=== PATIENT | male | born 1945 | race Caucasian/White ===

== ENCOUNTER → 2019-08-09 13:37 | Outpatient (CLI) | payer MEDICARE, SELFPAY ==
--- NOTE | 2019-08-09 13:59 | ECG_ITS ---
APPROVED REPORT Exam: Resting ECG HR:115 bpm ECG Measurements Heart Rate 115 AXES QRSd 94 QRS 15 QT 344 T 100 QTc 475 <Conclusion> Atrial fibrillation with rapid ventricular response Moderate voltage criteria for LVH, may be normal variant Nonspecific ST-T wave abnormalities, probably digitalis effect Abnormal ECG Electronically signed by : Jeremy Fisher, 08/10/2019 16:56:29
== END ==
DX: I10 Essential (primary) hypertension (principal); R00.0 Tachycardia, unspecified
CPT/HCPCS: 93005

== ENCOUNTER → 2019-08-16 14:35 | Outpatient (CLI) | payer MEDICARE, SELFPAY ==
--- NOTE | 2019-08-16 14:38 | CA_ITS ---
[facility] RADIOLOGICAL CONSULTATION Patient Name : Jon Huerta X-RAY # : [id number] Physician: MICHELE MEJIA AGE: 73Y : 1945 00:00:00 ( M ) Exam : CA ECHO DOPPLER COMPLETE ACC # : [id number] Study Date : 08/16/2019 14:59:07 Patient Class : O FINAL REPORT CLINICAL DATA: FINDINGS: TRANSCRIBED REPORT EXAM: Comprehensive 2D, Doppler, and color-flow Echocardiogram Type Mapper: RT Amando(R) Ht: 6 ft 1 in Wt: 226lbs BSA: 2.27 BP: 183/123 mmHg Indications: Palpitations, HTN, SOB, Hyperlipidemia, AFIB, hx of rheumatic fever 2D Dimensions IVSd 1.43 cm M: 0.6-1.2 PWd 1.40 cm M: 0.6 - 1.2 LVDd 3.65 cm M: 4.2 - 5.9 Aortic Root 4.30 cm M: 3.1 - 3.7 Left Atrium 4.30 cm M: 3.0 - 4.0 LVOT 2.32 cm (M/F) 1.5-2.5 M-Mode Dimensions RVDd 2.13 cm (0.9-2.6) LVDd 3.65 cm (3.5-5.7) Ao Diam 4.30 cm (2.0-3.7) LVDs 4.98 cm (3.5-5.7) AV Cusp 2.00 cm (1.5-2.6) IVSd 1.45 cm (0.6-1.1) PWd 0.88 cm (0.6-1.1) EF (Teich) 17.80% FS 8.10% EDV (Teich) 142.50 mL ESV (Teich) 117.10 mL LV Diastology E/A Ratio 3.43 Mitral Valve MV A Velocity 26.00 (40-130 cm/s) Electronically signed by : IMPRESSION: Dictated by at Transcribed by at
== END ==
PROVIDERS: Visit Provider Physician Assistant
DX: R06.09 Other forms of dyspnea (principal)
CPT/HCPCS: 93306

== ENCOUNTER → 2019-08-19 13:42 | Outpatient (CLI) | payer MEDICARE, SELFPAY ==
--- NOTE | 2019-08-19 13:59 | XR_ITS ---
PROCEDURE: XR CHEST 2V CLINICAL HISTORY: SOA, Rach. fib COMPARISON: No exams were available for comparison FINDINGS: Mild cardiomegaly without failure. There tortuosity of the descending thoracic aorta The lungs are clear without infiltrates, suspicious nodules, or pleural effusions. No acute bony abnormalities. IMPRESSION: No acute findings. Dictated by: Terence Oconnor MD 08/19/2019 14:30 Electronically signed by Terence Oconnor MD in [place] 08/19/2019 14:30
== END ==
PROVIDERS: Visit Provider Internal Medicine
DX: I10 Essential (primary) hypertension (principal); I48.91 Unspecified atrial fibrillation; R06.02 Shortness of breath; Z86.79 Personal history of other diseases of the circulatory system
CPT/HCPCS: 71046

== ENCOUNTER → 2019-08-30 11:28 | Outpatient (CLI) | payer MEDICARE, SELFPAY ==
--- NOTE | 2019-08-30 11:42 | US_ITS ---
PROCEDURE: US KIDNEY CLINICAL INDICATION: I10 Essential (primary) hypertension The hypertension COMPARISON: No exams were available for comparison FINDINGS: The kidneys are normal size shape and position. No cortical thinning or scarring demonstrated. No hydronephrosis or mass IMPRESSION: Unremarkable bilateral renal ultrasound Dictated by: Terence Oconnor MD 08/30/2019 14:21 Electronically signed by Terence Oconnor MD in [place] 08/30/2019 14:21
== END ==
PROVIDERS: Visit Provider Internal Medicine
DX: I10 Essential (primary) hypertension (principal)
CPT/HCPCS: 76770

== ENCOUNTER → 2019-09-07 11:54 | Outpatient (CLI) | payer MEDICARE, SELFPAY ==
[2019-09-07 12:23] LABS: Basophils # 0.1 K/mm3 (0-0.2); Eosinophils # 0.3 K/mm3 (0.0-0.4); Eosinophils % 3.8 % (0.1-12.0); Hemoglobin 17.4 g/dL (14.1-18.0); Lymphocytes # 1.1 K/mm3 (0.7-4.5); Lymphocytes % 16.5 % (10-50); Mean Corpuscular HGB Conc 32.8 g/dL (31.8-35.4); Mean Corpuscular Hemoglobin 30.4 pg (27.0-31.2); Mean Corpuscular Volume 92.6 fl (80-94); Mean Platelet Volume 7.2 fl (7.4-10.4); Monocytes # 0.4 K/mm3 (0.1-1.0); Monocytes % 6.1 % (1.7-9.3); Neutrophils # 4.8 K/mm3 (1.8-7.8); Neutrophils % 72.6 % (37.0-80.0); Platelet Count 232 K/mm3 (142-424); Red Blood Count 5.72 M/mm3 (4.60-6.20); Red Cell Distribution Width 13.7 % (11.5-17.5); White Blood Count 6.6 K/mm3 (4.8-10.8)
[2019-09-07 15:51] LABS: Anion Gap 10.5 mEq/L (5-15); Blood Urea Nitrogen 25 mg/dL (7-18); Calcium 8.9 mg/dL (8.5-10.1); Carbon Dioxide 28 mmol/L (21.0-32.0); Chloride 104 mmol/L (98-107); Estimated Glomerular Filt Rate 66 ml/min (>60); GFR (African American) 80 ML/MIN (>60); Glucose 116 mg/dL (74-106); Potassium 4.5 mmoL/L (3.5-5.1); Sodium 138 mmol/L (136-145)
== END ==
PROVIDERS: Visit Provider Nurse Practitioner Family
DX: I42.9 Cardiomyopathy, unspecified (principal); E78.2 Mixed hyperlipidemia; I25.10 Atherosclerotic heart disease of native coronary artery without angina pectoris; I48.91 Unspecified atrial fibrillation; I50.22 Chronic systolic (congestive) heart failure; R94.31 Abnormal electrocardiogram [ECG] [EKG]
CPT/HCPCS: 36415; 80048; 85025

== ENCOUNTER → 2019-09-21 10:33 | Outpatient (CLI) | payer MEDICARE, SELFPAY | PROVIDERS: Visit Provider Nurse Practitioner Family | DX: G47.33 Obstructive sleep apnea (adult) (pediatric) (principal) | CPT/HCPCS: G0399 ==

== ENCOUNTER → 2019-09-30 10:25 | Outpatient (CLI) | payer MEDICARE, SELFPAY | PROVIDERS: Visit Provider Nurse Practitioner Family | DX: G47.33 Obstructive sleep apnea (adult) (pediatric) (principal) | CPT/HCPCS: G0399 ==

== ENCOUNTER → 2020-05-24 10:46 | Outpatient (CLI) | payer MEDICARE, SELFPAY ==
[2020-05-24 11:16] LABS: Basophils # 0.1 K/mm3 (0-0.2); Eosinophils # 0.2 K/mm3 (0.0-0.4); Lymphocytes # 1.2 K/mm3 (0.7-4.5); Mean Platelet Volume 6.8 fl (7.4-10.4); Monocytes # 0.4 K/mm3 (0.1-1.0)
[2020-05-24 11:39] LABS: Basophils % 0.9 % (0.1-2.0); Eosinophils % 3.1 % (0.1-12.0); Hematocrit 57.3 % (42.0-52.0); Lymphocytes % 23.5 % (10-50); Mean Corpuscular HGB Conc 34.8 g/dL (31.8-35.4); Mean Corpuscular Hemoglobin 31.5 pg (27.0-31.2); Mean Corpuscular Volume 90.7 fl (80-94); Monocytes % 7.3 % (1.7-9.3); Neutrophils # 3.4 K/mm3 (1.8-7.8); Neutrophils % 65.2 % (37.0-80.0); Platelet Count 189 K/mm3 (142-424); Red Blood Count 6.31 M/mm3 (4.60-6.20); White Blood Count 5.3 K/mm3 (4.8-10.8)
[2020-05-24 11:40] LABS: Chloride 104 mmol/L (98-107); Potassium 4.5 mmoL/L (3.5-5.1); Sodium 138 mmol/L (136-145)
[2020-05-24 11:43] LABS: Anion Gap 11.5 mEq/L (5-15); Blood Urea Nitrogen 20 mg/dl (9-20); Calcium 9.2 mg/dl (8.4-10.2); Carbon Dioxide 27 mmol/L (22.0-30.0); Estimated Glomerular Filt Rate 83 ml/min (>60); GFR (African American) 100 ML/MIN (>60); Glucose 109 mg/dl (74-100)
[2020-05-24 11:44] LABS: Hemoglobin 19.9 g/dL (14.1-18.0)
== END ==
PROVIDERS: Visit Provider Urology
DX: E78.5 Hyperlipidemia, unspecified (principal); I11.9 Hypertensive heart disease without heart failure; I25.10 Atherosclerotic heart disease of native coronary artery without angina pectoris; I48.91 Unspecified atrial fibrillation; I50.22 Chronic systolic (congestive) heart failure; R06.00 Dyspnea, unspecified
CPT/HCPCS: 36415; 80048; 85025

== ENCOUNTER 2020-05-26 12:40 | Outpatient (CLI) | payer MEDICARE, SELFPAY ==
[2020-05-26 12:55] VITALS: BP 137/95; PULSE 79; RESP 18; O2SAT 98
[2020-05-26 13:25] VITALS: BP 137/94; PULSE 86; RESP 18
== END 2020-05-26 13:25 | disposition home or self-care (01) ==
LOC: INF 12:42
PROVIDERS: Visit Provider Urology
DX: D75.1 Secondary polycythemia (principal)
CPT/HCPCS: 99195

== ENCOUNTER 2020-06-09 12:36 | Outpatient (CLI) | payer MEDICARE, SELFPAY ==
[2020-06-09 12:38] VITALS: BMI 28.8
[2020-06-09 12:54] LABS: Hematocrit 51.9 % (42.0-52.0)
[2020-06-09 13:05] VITALS: BP 130/88; PULSE 89; RESP 18; TEMP 36.6; O2SAT 97
--- NOTE | 2020-06-09 14:31 | PC.NURSE ---
1240 Patient here for H&H lab/possible therapeutic phlebotomy. H&H drawn per geochemical laboratory technician. 1250 Patient's H&H 18.0/51.9 today. No therapeutic phlebotomy needed. 1255 Spoke with Kiarra in Dr. Gautam/Goldie Butterfield APRN office. Informed of results and no need for therapeutic phlebotomy today. Patient/outpatient infusion will be notified per MD's office if any further H&H/possible therapeutic phlebotomy needed. Patient informed of same, and verbalizes understanding. Patient has scheduled follow-up appointment with MD's office 08/23/20 at 1130 am/patient will be notified per MD's office if sooner followup needed.
== END 2020-06-09 13:05 | disposition home or self-care (01) ==
LOC: INF 12:36
PROVIDERS: Visit Provider Nurse Practitioner Family
DX: Z51.81 Encounter for therapeutic drug level monitoring (principal)
CPT/HCPCS: 85014; 85018

== ENCOUNTER → 2022-01-07 14:08 | Outpatient (CLI) | payer MEDICARE, SELFPAY ==
[2022-01-07 14:58] LABS: Basophils # 0.1 K/mm3 (0-0.2); Basophils % 0.9 % (0.1-2.0); Eosinophils # 0.1 K/mm3 (0.0-0.4); Eosinophils % 2.4 % (0.1-12.0); Lymphocytes # 0.7 K/mm3 (0.7-4.5); Lymphocytes % 12.9 % (10-50); Mean Corpuscular HGB Conc 31.8 g/dL (31.8-35.4); Mean Corpuscular Hemoglobin 29.9 pg (27.0-31.2); Mean Corpuscular Volume 94.1 fl (80-94); Mean Platelet Volume 7.3 fl (7.4-10.4); Monocytes # 0.4 K/mm3 (0.1-1.0); Monocytes % 7.6 % (1.7-9.3); Neutrophils # 4.4 K/mm3 (1.8-7.8); Neutrophils % 76.1 % (37.0-80.0); Platelet Count 222 K/mm3 (142-424); Red Blood Count 6.48 M/mm3 (4.60-6.20); White Blood Count 5.7 K/mm3 (4.8-10.8)
[2022-01-07 15:51] LABS: Alanine Aminotransferase 18 U/L (12-78); Albumin Level 4.3 g/dl (3.5-5.0); Alkaline Phosphatase 64 U/L (38-126); Anion Gap 10.8 mEq/L (5-15); Aspartate Amino Transferase 33 U/L (17-59); Bilirubin,Direct 0.2 mg/dl (0.0-0.4); Bilirubin,Indirect 1.7 mg/dL (0.0-0.9); Bilirubin,Total 1.9 mg/dl (0.2-1.3); Bilirubin,Unconjugated 1.8 mg/dL (0.0-1.1); Blood Urea Nitrogen 21 mg/dl (9-20); Calcium 9.4 mg/dl (8.4-10.2); Carbon Dioxide 29 mmol/L (22.0-30.0); Chloride 101 mmol/L (98-107); Chol/HDL Ratio 3.8 (1-3.5); Cholesterol 187 mg/dl (140-200); Estimated Glomerular Filt Rate 73 ml/min (>60); GFR (African American) 88 ML/MIN (>60); Glucose 108 mg/dl (74-100); HDL Cholesterol 49 mg/dl (40-60); Potassium 4.8 mmoL/L (3.5-5.1); Sodium 136 mmol/L (136-145); Total Protein,Serum 6.9 g/dl (6.3-8.2); Triglycerides 107 mg/dl (30-150); VLDL Cholesterol 21 mg/dL (0-40)
[2022-01-07 16:03] LABS: Direct LDL Cholesterol 106.68 mg/dL (100-129)
[2022-01-07 18:26] LABS: Hemoglobin 19.4 g/dL (14.1-18.0)
== END ==
PROVIDERS: Visit Provider Nurse Practitioner Family
DX: D75.1 Secondary polycythemia (principal); E78.5 Hyperlipidemia, unspecified; I11.0 Hypertensive heart disease with heart failure; I25.10 Atherosclerotic heart disease of native coronary artery without angina pectoris; I42.9 Cardiomyopathy, unspecified; I48.91 Unspecified atrial fibrillation; I50.22 Chronic systolic (congestive) heart failure; R06.00 Dyspnea, unspecified; Z86.79 Personal history of other diseases of the circulatory system
CPT/HCPCS: 36415; 80048; 80061; 80076; 85025

== ENCOUNTER 2022-01-09 12:31 | Outpatient (CLI) | payer MEDICARE, SELFPAY ==
[2022-01-09 12:50] VITALS: BP 136/85; PULSE 75; RESP 18
[2022-01-09 13:27] VITALS: BP 138/88; PULSE 75; RESP 18
== END 2022-01-09 13:27 | disposition home or self-care (01) ==
LOC: INF 12:32
PROVIDERS: Visit Provider Nurse Practitioner Family
DX: R79.1 Abnormal coagulation profile (principal)
CPT/HCPCS: 99195

== ENCOUNTER → 2022-07-08 13:37 | Outpatient (CLI) | payer MEDICARE, SELFPAY ==
[2022-07-08 14:47] LABS: Basophils # 0.1 K/mm3 (0-0.2); Basophils % 1.2 % (0.1-2.0); Eosinophils # 0.1 K/mm3 (0.0-0.4); Eosinophils % 2.2 % (0.1-12.0); Hematocrit 58.3 % (42.0-52.0); Lymphocytes # 1.2 K/mm3 (0.7-4.5); Lymphocytes % 21.2 % (10-50); Mean Corpuscular HGB Conc 33.2 g/dL (31.8-35.4); Mean Corpuscular Hemoglobin 31.2 pg (27.0-31.2); Mean Corpuscular Volume 93.9 fl (80-94); Mean Platelet Volume 7.7 fl (7.4-10.4); Monocytes # 0.5 K/mm3 (0.1-1.0); Monocytes % 7.9 % (1.7-9.3); Neutrophils # 3.9 K/mm3 (1.8-7.8); Neutrophils % 67.4 % (37.0-80.0); Platelet Count 210 K/mm3 (142-424); Red Blood Count 6.21 M/mm3 (4.60-6.20); Red Cell Distribution Width 14.2 % (11.5-17.5); White Blood Count 5.7 K/mm3 (4.8-10.8)
[2022-07-08 16:05] LABS: Alanine Aminotransferase 22 U/L (12-78); Albumin Level 4.4 g/dl (3.5-5.0); Alkaline Phosphatase 82 U/L (38-126); Anion Gap 14.2 mEq/L (5-15); Aspartate Amino Transferase 35 U/L (17-59); Bilirubin,Direct 0.2 mg/dl (0.0-0.4); Bilirubin,Indirect 1.5 mg/dL (0.0-0.9); Bilirubin,Total 1.7 mg/dl (0.2-1.3); Bilirubin,Unconjugated 1.5 mg/dL (0.0-1.1); Blood Urea Nitrogen 28 mg/dl (9-20); Calcium 9.3 mg/dl (8.4-10.2); Carbon Dioxide 27 mmol/L (22.0-30.0); Chloride 102 mmol/L (98-107); Chol/HDL Ratio 4.5 (1-3.5); Cholesterol 210 mg/dl (140-200); Estimated Glomerular Filt Rate 65 ml/min (>60); GFR (African American) 79 ML/MIN (>60); Glucose 102 mg/dl (74-100); HDL Cholesterol 47 mg/dl (40-60); Hemoglobin 19.4 g/dL (14.1-18.0); Magnesium 2.1 mg/dl (1.6-2.3); Potassium 4.2 mmoL/L (3.5-5.1); Sodium 139 mmol/L (136-145); Total Protein,Serum 7.4 g/dl (6.3-8.2); Triglycerides 100 mg/dl (30-150); VLDL Cholesterol 20 mg/dL (0-40)
[2022-07-08 16:17] LABS: Direct LDL Cholesterol 140.89 mg/dL (100-129)
[2022-07-08 16:22] LABS: Free T4 (Free Thyroxine) 0.95 ng/dl (0.78-2.19)
[2022-07-08 16:36] LABS: Thyroid Stimulating Hormone 1.49 uIU/mL (0.465-4.68)
== END ==
PROVIDERS: Visit Provider Nurse Practitioner Family
DX: E78.2 Mixed hyperlipidemia (principal); I25.10 Atherosclerotic heart disease of native coronary artery without angina pectoris; I42.9 Cardiomyopathy, unspecified; I48.0 Paroxysmal atrial fibrillation; I50.22 Chronic systolic (congestive) heart failure; R94.31 Abnormal electrocardiogram [ECG] [EKG]; I11.0 Hypertensive heart disease with heart failure
CPT/HCPCS: 36415; 80048; 80061; 80076; 83735; 84439; 84443; 85025

== ENCOUNTER 2022-07-10 10:34 | Outpatient (CLI) | payer MEDICARE, SELFPAY ==
[2022-07-10 10:53] VITALS: BP 158/77; PULSE 60; RESP 18; O2SAT 96
[2022-07-10 12:08] VITALS: BP 126/103; PULSE 72; RESP 18; O2SAT 99
--- NOTE | 2022-07-10 12:35 | CA_ITS ---
APPROVED REPORT EXAM: Comprehensive 2D, Doppler, and color-flow Echocardiogram Field Operations Farm Manager: Luz English RDCS Ht: 6 ft 1 in Wt: 209lbs BSA: 2.19 BP: 000/00 mmHg Indications: CAD, CHF, Afib, Abn EKG, HTN, HLD,CM 2D Dimensions LVOT 2.04 cm (M/F) 1.5-2.5 M-Mode Dimensions RVDd 2.41 cm (0.9-2.6) LA Diam 4.89 cm (1.9-4.0) LVDd 7.04 cm (3.5-5.7) Ao Diam 3.86 cm (2.0-3.7) LVDs 5.26 cm (3.5-5.7) IVSd 1.20 cm (0.6-1.1) PWd 0.98 cm (0.6-1.1) EF (Teich) 48.60% FS 25.30% EDV (Teich) 258.70 mL ESV (Teich) 133.00 mL Aortic Valve LVOT Max 76.00 (70-110 cm/s) LVOT VTI 14.66 cm AoV Peak Remberto. 103.00 (50-130 cm/s) AI PHT 546.00 ms AO Peak GR. 4.20 mmHg AO Mean GR. 2.10 (<5 mmHg) AO VTI 16.82 (18-25 cm) FERNANDO (VTI) 2.85 (2.5-4.5 cm2) Tricuspid Valve TR P. Velocity 226.00 cm/s RAP Estimate 10.00 mmHg RVSP 30.40 mmHg Left Ventricle Left atrium is moderately enlarged, left ventricle is normal size, mild concentric left ventricular hypertrophy, estimated ejection fraction 50% with no regional wall motion abnormality, diastolic parameters are inconclusive. Right Ventricle Right atrium and right ventricle are mildly enlarged with normal contractility. Aortic Valve Aortic valve is minimally thickened and calcified there is no aortic stenosis, there is moderate aortic insufficiency Mitral Valve Mitral valve leaflets are minimally thickened, there is mild to moderate mitral regurgitation. Tricuspid Valve Tricuspid valve grossly normal, there is mild tricuspid regurgitation, tricuspid regurgitation jet velocity is inadequate for calculation of the right ventricular systolic pressure. Pulmonic Valve Pulmonic valve is poorly visualized. Great Vessels Aortic root is normal size. Inferior vena cava is poorly visualized. Pericardium No significant pericardial effusion noted. Conclusion 1. Biatrial enlargement, normal left ventricular size, mild concentric left ventricular hypertrophy, estimated ejection fraction is 50% with no obvious regional wall motion abnormality, diastolic parameters are inconclusive. 2. Mildly enlarged right ventricle with normal contractility. 3. Mild to moderate mitral and moderate aortic insufficiency. 4. No significant pericardial effusion noted. 5. Inferior vena cava is poorly visualized. Electronically signed by : Aguila Ovalle MD 07/11/2022 05:58:09
== END 2022-07-10 12:09 | disposition home or self-care (01) ==
PROVIDERS: Visit Provider Internal Medicine
DX: I42.9 Cardiomyopathy, unspecified (principal); I50.22 Chronic systolic (congestive) heart failure
CPT/HCPCS: 93306; 99195

== ENCOUNTER 2022-08-07 11:20 | Outpatient (CLI) | payer MEDICARE, SELFPAY ==
[2022-08-07 11:27] VITALS: BMI 27.6
[2022-08-07 11:53] LABS: Basophils # 0.1 K/mm3 (0-0.2); Basophils % 1.5 % (0.1-2.0); Eosinophils # 0.2 K/mm3 (0.0-0.4); Eosinophils % 3.2 % (0.1-12.0); Hematocrit 52.9 % (42.0-52.0); Hemoglobin 17.5 g/dL (14.1-18.0); Lymphocytes # 1.1 K/mm3 (0.7-4.5); Mean Corpuscular HGB Conc 33.1 g/dL (31.8-35.4); Mean Corpuscular Hemoglobin 31.5 pg (27.0-31.2); Mean Platelet Volume 7.2 fl (7.4-10.4); Monocytes # 0.4 K/mm3 (0.1-1.0); Monocytes % 8.3 % (1.7-9.3); Neutrophils # 3.3 K/mm3 (1.8-7.8); Neutrophils % 65.9 % (37.0-80.0); Platelet Count 219 K/mm3 (142-424); Red Blood Count 5.58 M/mm3 (4.60-6.20); Red Cell Distribution Width 13.8 % (11.5-17.5)
--- NOTE | 2022-08-07 13:00 | PC.NURSE ---
1135-BLOOD DRAWN FROM LEFT FOREARM USING BUTTERFLY NEEDLE TO CHECK CBC.
--- NOTE | 2022-08-07 13:05 | PC.NURSE ---
1215 - HAMILTON KAPLAN FROM LAB PRESENT TO START THERAPEUTIC PHLEBOTOMY. RN STARTED #20 IN RIGHT FOREARM. VITALS FOLLOWS: PULSE 76, RESP 16, BP 133/100, O2 SAT 96% ON ROOM AIR.
--- NOTE | 2022-08-07 14:22 | PC.NURSE ---
1345-THERAPEUTIC PHLEBOTOMY COMPLETE; IV REMOVED; VITALS FOLLOWS: PULSE 79, RESP 16, BP 140/89.
== END 2022-08-07 14:00 | disposition home or self-care (01) ==
LOC: INF 11:22
PROVIDERS: Visit Provider Internal Medicine
DX: D45 Polycythemia vera (principal)
CPT/HCPCS: 36415; 85025; 99195

== ENCOUNTER 2022-09-04 11:11 | Outpatient (CLI) | payer MEDICARE, SELFPAY ==
[2022-09-04 11:24] VITALS: BMI 27.6
[2022-09-04 11:39] LABS: Basophils # 0.1 K/mm3 (0-0.2); Basophils % 1.5 % (0.1-2.0); Eosinophils # 0.2 K/mm3 (0.0-0.4); Eosinophils % 3.2 % (0.1-12.0); Hematocrit 56.2 % (42.0-52.0); Lymphocytes # 1.2 K/mm3 (0.7-4.5); Lymphocytes % 22.1 % (10-50); Mean Corpuscular Hemoglobin 30.2 pg (27.0-31.2); Mean Corpuscular Volume 94.1 fl (80-94); Mean Platelet Volume 7.3 fl (7.4-10.4); Monocytes # 0.5 K/mm3 (0.1-1.0); Monocytes % 8.9 % (1.7-9.3); Neutrophils # 3.6 K/mm3 (1.8-7.8); Neutrophils % 64.3 % (37.0-80.0); Platelet Count 222 K/mm3 (142-424); Red Blood Count 5.97 M/mm3 (4.60-6.20); Red Cell Distribution Width 13.8 % (11.5-17.5); White Blood Count 5.6 K/mm3 (4.8-10.8)
[2022-09-04 11:50] VITALS: BP 145/99; PULSE 96; RESP 18
[2022-09-04 13:45] VITALS: BP 119/80; PULSE 74; RESP 18
== END 2022-09-04 13:45 | disposition home or self-care (01) ==
PROVIDERS: Visit Provider Physician Assistant
DX: D45 Polycythemia vera (principal)
CPT/HCPCS: 36415; 85025; 99195

== ENCOUNTER 2022-10-02 10:49 | Outpatient (CLI) | payer MEDICARE, SELFPAY ==
[2022-10-02 10:58] VITALS: BMI 27.6
[2022-10-02 11:12] LABS: Basophils # 0.1 K/mm3 (0-0.2); Basophils % 1.3 % (0.1-2.0); Eosinophils # 0.2 K/mm3 (0.0-0.4); Eosinophils % 3.9 % (0.1-12.0); Hematocrit 53.1 % (42.0-52.0); Hemoglobin 17.5 g/dL (14.1-18.0); Lymphocytes # 1.1 K/mm3 (0.7-4.5); Lymphocytes % 22.2 % (10-50); Mean Corpuscular HGB Conc 32.9 g/dL (31.8-35.4); Mean Corpuscular Hemoglobin 30.5 pg (27.0-31.2); Mean Corpuscular Volume 92.6 fl (80-94); Mean Platelet Volume 7.4 fl (7.4-10.4); Monocytes # 0.4 K/mm3 (0.1-1.0); Neutrophils # 3.3 K/mm3 (1.8-7.8); Neutrophils % 65.6 % (37.0-80.0); Platelet Count 228 K/mm3 (142-424); Red Blood Count 5.73 M/mm3 (4.60-6.20); Red Cell Distribution Width 13.3 % (11.5-17.5); White Blood Count 5.1 K/mm3 (4.8-10.8)
[2022-10-02 11:25] VITALS: BP 117/78; PULSE 72; RESP 18; O2SAT 99
== END 2022-10-02 12:10 | disposition home or self-care (01) ==
LOC: INF 10:53
PROVIDERS: Visit Provider Internal Medicine
DX: D45 Polycythemia vera (principal)
CPT/HCPCS: 36415; 85025; 99195

== ENCOUNTER 2022-10-30 10:58 | Outpatient (CLI) | payer MEDICARE, SELFPAY ==
[2022-10-30 11:01] VITALS: BMI 26.5
--- NOTE | 2022-10-30 11:05 | PC.NURSE ---
1105-collected labs via peripheral stick;will wait for labs
[2022-10-30 11:24] LABS: Basophils # 0.2 K/mm3 (0-0.2); Basophils % 2.4 % (0.1-2.0); Eosinophils # 0.2 K/mm3 (0.0-0.4); Eosinophils % 2.8 % (0.1-12.0); Hematocrit 53.9 % (42.0-52.0); Hemoglobin 16.4 g/dL (14.1-18.0); Lymphocytes # 1.4 K/mm3 (0.7-4.5); Lymphocytes % 20.2 % (10-50); Mean Corpuscular HGB Conc 30.5 g/dL (31.8-35.4); Mean Corpuscular Hemoglobin 28.7 pg (27.0-31.2); Mean Corpuscular Volume 94.2 fl (80-94); Mean Platelet Volume 7.7 fl (7.4-10.4); Monocytes # 0.8 K/mm3 (0.1-1.0); Monocytes % 11.2 % (1.7-9.3); Neutrophils # 4.4 K/mm3 (1.8-7.8); Neutrophils % 63.5 % (37.0-80.0); Platelet Count 278 K/mm3 (142-424); Red Blood Count 5.72 M/mm3 (4.60-6.20); Red Cell Distribution Width 13.6 % (11.5-17.5)
--- NOTE | 2022-10-30 11:28 | PC.NURSE ---
1128-pt d/c home; no phlebotomy today hgb 16.4; pt to return in 1month
== END 2022-10-30 11:28 | disposition home or self-care (01) ==
LOC: INF 10:59
PROVIDERS: Visit Provider Internal Medicine
DX: D45 Polycythemia vera (principal)
CPT/HCPCS: 36415; 85025

== ENCOUNTER 2022-11-27 10:50 | Outpatient (CLI) | payer MEDICARE, SELFPAY ==
[2022-11-27 10:55] VITALS: BMI 27.6
--- NOTE | 2022-11-27 11:01 | PC.NURSE ---
1101-collected labs via peripheral stick;will wait for labs
[2022-11-27 11:26] LABS: Basophils # 0.1 K/mm3 (0-0.2); Basophils % 1.4 % (0.1-2.0); Eosinophils # 0.1 K/mm3 (0.0-0.4); Eosinophils % 2.1 % (0.1-12.0); Hematocrit 53.4 % (42.0-52.0); Hemoglobin 17.1 g/dL (14.1-18.0); Lymphocytes % 20.7 % (10-50); Mean Corpuscular Hemoglobin 27.9 pg (27.0-31.2); Mean Corpuscular Volume 87.3 fl (80-94); Mean Platelet Volume 7.1 fl (7.4-10.4); Monocytes # 0.5 K/mm3 (0.1-1.0); Monocytes % 9.1 % (1.7-9.3); Neutrophils # 3.3 K/mm3 (1.8-7.8); Neutrophils % 66.8 % (37.0-80.0); Platelet Count 244 K/mm3 (142-424); Red Blood Count 6.12 M/mm3 (4.60-6.20); Red Cell Distribution Width 14.2 % (11.5-17.5); White Blood Count 4.9 K/mm3 (4.8-10.8)
[2022-11-27 11:45] VITALS: BP 126/67; PULSE 74; RESP 19; O2SAT 95
[2022-11-27 12:10] VITALS: BP 142/93; PULSE 79; RESP 18
== END 2022-11-27 12:10 | disposition home or self-care (01) ==
LOC: INF 10:51
PROVIDERS: Visit Provider Internal Medicine
DX: D45 Polycythemia vera (principal)
CPT/HCPCS: 36415; 85025; 99195

== ENCOUNTER 2022-12-25 11:06 | Outpatient (CLI) | payer MEDICARE, SELFPAY ==
[2022-12-25 11:07] VITALS: BMI 27.6
[2022-12-25 11:29] LABS: Basophils # 0.1 K/mm3 (0-0.2); Basophils % 1.2 % (0.1-2.0); Eosinophils # 0.1 K/mm3 (0.0-0.4); Eosinophils % 1.9 % (0.1-12.0); Hematocrit 52.2 % (42.0-52.0); Hemoglobin 16.8 g/dL (14.1-18.0); Lymphocytes % 20.3 % (10-50); Mean Corpuscular HGB Conc 32.1 g/dL (31.8-35.4); Mean Corpuscular Hemoglobin 27.6 pg (27.0-31.2); Mean Platelet Volume 7.6 fl (7.4-10.4); Monocytes # 0.4 K/mm3 (0.1-1.0); Monocytes % 6.9 % (1.7-9.3); Neutrophils # 3.5 K/mm3 (1.8-7.8); Neutrophils % 69.7 % (37.0-80.0); Platelet Count 264 K/mm3 (142-424); Red Blood Count 6.07 M/mm3 (4.60-6.20); Red Cell Distribution Width 14.3 % (11.5-17.5)
--- NOTE | 2022-12-25 11:55 | PC.NURSE ---
pt hgb was 16.8 and did not meet criteria for phlebotomy per MD order.
== END 2022-12-25 11:57 | disposition home or self-care (01) ==
LOC: INF 11:07
PROVIDERS: Visit Provider Internal Medicine
DX: D45 Polycythemia vera (principal)
CPT/HCPCS: 36415; 85025

== ENCOUNTER 2023-01-22 11:08 | Outpatient (CLI) | payer MEDICARE, SELFPAY ==
[2023-01-22 11:22] VITALS: BMI 27.6
[2023-01-22 11:40] LABS: Basophils # 0.1 K/mm3 (0-0.2); Basophils % 1.3 % (0.1-2.0); Eosinophils # 0.2 K/mm3 (0.0-0.4); Eosinophils % 3.5 % (0.1-12.0); Hematocrit 52.6 % (42.0-52.0); Lymphocytes # 1.2 K/mm3 (0.7-4.5); Lymphocytes % 19.5 % (10-50); Mean Corpuscular HGB Conc 32.3 g/dL (31.8-35.4); Mean Corpuscular Hemoglobin 27.7 pg (27.0-31.2); Mean Corpuscular Volume 85.9 fl (80-94); Mean Platelet Volume 7.5 fl (7.4-10.4); Monocytes # 0.5 K/mm3 (0.1-1.0); Monocytes % 7.9 % (1.7-9.3); Neutrophils # 4.2 K/mm3 (1.8-7.8); Neutrophils % 67.7 % (37.0-80.0); Platelet Count 247 K/mm3 (142-424); Red Blood Count 6.12 M/mm3 (4.60-6.20); Red Cell Distribution Width 14.7 % (11.5-17.5); White Blood Count 6.2 K/mm3 (4.8-10.8)
--- NOTE | 2023-01-22 11:45 | PC.NURSE ---
Pt hgb today was 17.0. Pt does not meet criteria for phlebotomy per MD order. f/u scheduled for 1 month.
== END 2023-01-22 11:47 | disposition home or self-care (01) ==
LOC: INF 11:09
PROVIDERS: PCP Internal Medicine; Visit Provider Internal Medicine
DX: D45 Polycythemia vera (principal)
CPT/HCPCS: 36415; 85025

== ENCOUNTER 2023-02-19 12:18 | Outpatient (CLI) | payer MEDICARE, SELFPAY ==
[2023-02-19 12:50] VITALS: BMI 27.6
[2023-02-19 12:59] LABS: Basophils # 0.1 K/mm3 (0-0.2); Eosinophils # 0.2 K/mm3 (0.0-0.4); Eosinophils % 2.7 % (0.1-12.0); Hematocrit 53.7 % (42.0-52.0); Hemoglobin 17.2 g/dL (14.1-18.0); Lymphocytes # 1.1 K/mm3 (0.7-4.5); Lymphocytes % 19.5 % (10-50); Mean Corpuscular Hemoglobin 27.8 pg (27.0-31.2); Mean Corpuscular Volume 86.9 fl (80-94); Mean Platelet Volume 7.6 fl (7.4-10.4); Monocytes # 0.4 K/mm3 (0.1-1.0); Monocytes % 7.3 % (1.7-9.3); Neutrophils # 3.9 K/mm3 (1.8-7.8); Neutrophils % 69.5 % (37.0-80.0); Platelet Count 242 K/mm3 (142-424); Red Blood Count 6.19 M/mm3 (4.60-6.20); Red Cell Distribution Width 15.7 % (11.5-17.5); White Blood Count 5.6 K/mm3 (4.8-10.8)
--- NOTE | 2023-02-19 14:03 | PC.NURSE ---
Phlebotomy performed by Laura Breen from lab. 500 ml whole blood removed per MD order via 18g in right forearm. BP post phlebotomy was 121/90, HR 83. pt tolerated well and voiced no complaints. IV removed.
== END 2023-02-19 13:36 | disposition home or self-care (01) ==
LOC: INF 12:19
PROVIDERS: PCP Internal Medicine; Visit Provider Internal Medicine
DX: I42.8 Other cardiomyopathies (principal); D75.1 Secondary polycythemia
CPT/HCPCS: 36415; 85025; 99195

== ENCOUNTER 2023-03-19 12:47 | Outpatient (CLI) | payer MEDICARE, SELFPAY ==
[2023-03-19 12:52] VITALS: BMI 27.6
[2023-03-19 13:05] LABS: Basophils % 0.6 % (0.1-2.0); Eosinophils # 0.2 K/mm3 (0.0-0.4); Eosinophils % 3.2 % (0.1-12.0); Hematocrit 50.6 % (42.0-52.0); Hemoglobin 15.9 g/dL (14.1-18.0); Lymphocytes # 0.9 K/mm3 (0.7-4.5); Lymphocytes % 15.8 % (10-50); Mean Corpuscular HGB Conc 31.5 g/dL (31.8-35.4); Mean Corpuscular Volume 85.9 fl (80-94); Mean Platelet Volume 7.3 fl (7.4-10.4); Monocytes # 0.5 K/mm3 (0.1-1.0); Monocytes % 8.8 % (1.7-9.3); Neutrophils # 3.9 K/mm3 (1.8-7.8); Neutrophils % 71.6 % (37.0-80.0); Platelet Count 222 K/mm3 (142-424); Red Blood Count 5.89 M/mm3 (4.60-6.20); Red Cell Distribution Width 15.8 % (11.5-17.5); White Blood Count 5.5 K/mm3 (4.8-10.8)
--- NOTE | 2023-03-19 13:46 | PC.NURSE ---
1255-BLOOD DRAWN FROM LEFT AC USING BUTTERFLY NEEDLE TO CHECK CBC AT THIS TIME.
--- NOTE | 2023-03-19 13:47 | PC.NURSE ---
1310-NO THERAPEUTIC PHLEBOTOMY NEEDED DUE TO HGB 15.9.
== END 2023-03-19 13:15 | disposition home or self-care (01) ==
LOC: INF 12:48
PROVIDERS: Visit Provider Internal Medicine
DX: D45 Polycythemia vera (principal)
CPT/HCPCS: 36415; 85025

== ENCOUNTER 2023-04-16 11:55 | Outpatient (CLI) | payer MEDICARE, SELFPAY ==
[2023-04-16 12:01] VITALS: BMI 27.6
[2023-04-16 12:19] LABS: Basophils % 0.7 % (0.1-2.0); Eosinophils # 0.2 K/mm3 (0.0-0.4); Eosinophils % 3.9 % (0.1-12.0); Hematocrit 51.9 % (42.0-52.0); Hemoglobin 16.4 g/dL (14.1-18.0); Lymphocytes % 16.7 % (10-50); Mean Corpuscular HGB Conc 31.6 g/dL (31.8-35.4); Mean Corpuscular Hemoglobin 27.1 pg (27.0-31.2); Mean Corpuscular Volume 85.8 fl (80-94); Mean Platelet Volume 7.5 fl (7.4-10.4); Monocytes # 0.5 K/mm3 (0.1-1.0); Monocytes % 8.6 % (1.7-9.3); Neutrophils % 70.1 % (37.0-80.0); Platelet Count 215 K/mm3 (142-424); Red Blood Count 6.05 M/mm3 (4.60-6.20); Red Cell Distribution Width 15.9 % (11.5-17.5); White Blood Count 5.7 K/mm3 (4.8-10.8)
--- NOTE | 2023-04-16 12:28 | PC.NURSE ---
04/16/23 1211 pt presents today for lab check, possible phlebotomy. venipuncture performed to pts rt fa using butterfly needle. Blood drawn for specimen and needle withdrawn-site secured with 2x2 gauze and coban.
== END 2023-04-16 13:03 | disposition home or self-care (01) ==
LOC: INF 11:56
PROVIDERS: PCP Internal Medicine; Visit Provider Internal Medicine
DX: D45 Polycythemia vera (principal)
CPT/HCPCS: 36415; 85025

== ENCOUNTER 2023-05-14 11:07 | Outpatient (CLI) | payer MEDICARE, SELFPAY ==
[2023-05-14 11:13] VITALS: BMI 27.6
[2023-05-14 11:34] LABS: Basophils % 0.7 % (0.1-2.0); Eosinophils # 0.2 K/mm3 (0.0-0.4); Hematocrit 55.3 % (42.0-52.0); Hemoglobin 17.5 g/dL (14.1-18.0); Lymphocytes # 1.1 K/mm3 (0.7-4.5); Lymphocytes % 20.4 % (10-50); Mean Corpuscular HGB Conc 31.7 g/dL (31.8-35.4); Mean Corpuscular Hemoglobin 27.2 pg (27.0-31.2); Mean Corpuscular Volume 86.1 fl (80-94); Mean Platelet Volume 7.7 fl (7.4-10.4); Monocytes # 0.5 K/mm3 (0.1-1.0); Monocytes % 9.2 % (1.7-9.3); Neutrophils # 3.6 K/mm3 (1.8-7.8); Neutrophils % 66.7 % (37.0-80.0); Platelet Count 209 K/mm3 (142-424); Red Blood Count 6.43 M/mm3 (4.60-6.20); White Blood Count 5.4 K/mm3 (4.8-10.8)
[2023-05-14 12:55] VITALS: BP 123/93; PULSE 78; RESP 16
== END 2023-05-14 12:55 | disposition home or self-care (01) ==
LOC: INF 11:09
PROVIDERS: PCP Internal Medicine; Visit Provider Internal Medicine
DX: D45 Polycythemia vera (principal)
CPT/HCPCS: 85025; 99195

== ENCOUNTER 2023-06-11 09:35 | Outpatient (CLI) | payer MEDICARE, SELFPAY ==
[2023-06-11 09:39] VITALS: BMI 27.6
[2023-06-11 09:52] LABS: Basophils # 0.1 K/mm3 (0-0.2); Eosinophils # 0.2 K/mm3 (0.0-0.4); Eosinophils % 3.9 % (0.1-12.0); Hematocrit 52.7 % (42.0-52.0); Hemoglobin 16.6 g/dL (14.1-18.0); Lymphocytes % 19.7 % (10-50); Mean Corpuscular HGB Conc 31.5 g/dL (31.8-35.4); Mean Corpuscular Volume 88.7 fl (80-94); Mean Platelet Volume 7.8 fl (7.4-10.4); Monocytes # 0.4 K/mm3 (0.1-1.0); Monocytes % 8.2 % (1.7-9.3); Neutrophils # 3.4 K/mm3 (1.8-7.8); Neutrophils % 67.2 % (37.0-80.0); Platelet Count 210 K/mm3 (142-424); Red Blood Count 5.95 M/mm3 (4.60-6.20); Red Cell Distribution Width 15.8 % (11.5-17.5)
--- NOTE | 2023-06-11 10:14 | PC.NURSE ---
1008- pt hgb 16.6 and does not meet criteria for phlebotomy today per MD order. pt scheduled for f/u labs on 07/09/23.
== END 2023-06-11 10:08 | disposition home or self-care (01) ==
LOC: INF 09:36
PROVIDERS: Visit Provider Internal Medicine
DX: D45 Polycythemia vera (principal)
CPT/HCPCS: 36415; 85025

== ENCOUNTER 2023-07-09 10:38 | Outpatient (CLI) | payer MEDICARE, SELFPAY ==
[2023-07-09 11:04] VITALS: BMI 27.6
[2023-07-09 11:21] LABS: Basophils # 0.1 K/mm3 (0-0.2); Basophils % 0.9 % (0.1-2.0); Eosinophils # 0.3 K/mm3 (0.0-0.4); Hematocrit 55.1 % (42.0-52.0); Hemoglobin 17.4 g/dL (14.1-18.0); Lymphocytes % 17.5 % (10-50); Mean Corpuscular HGB Conc 31.5 g/dL (31.8-35.4); Mean Corpuscular Hemoglobin 27.4 pg (27.0-31.2); Mean Platelet Volume 7.4 fl (7.4-10.4); Monocytes # 0.4 K/mm3 (0.1-1.0); Monocytes % 7.5 % (1.7-9.3); Neutrophils # 3.8 K/mm3 (1.8-7.8); Neutrophils % 69.2 % (37.0-80.0); Platelet Count 195 K/mm3 (142-424); Red Blood Count 6.34 M/mm3 (4.60-6.20); Red Cell Distribution Width 15.9 % (11.5-17.5); White Blood Count 5.5 K/mm3 (4.8-10.8)
--- NOTE | 2023-07-09 12:03 | PC.NURSE ---
1145- Hgb this AM was 17.4. Phlebotomy performed per MD order by Laura Norris from lab. This RN started an 18g IV in right forearm. 500ml whole blood was drawn off. pt BP post phlebotomy was 132/93, HR 71. Pt tolerated well and voiced no complaints. F/u made for repeat labs in a month, 08/06/23.
== END 2023-07-09 12:05 | disposition home or self-care (01) ==
LOC: INF 10:39
PROVIDERS: PCP Internal Medicine; Visit Provider Internal Medicine
DX: D45 Polycythemia vera (principal)
CPT/HCPCS: 36415; 85025; 99195

== ENCOUNTER 2023-08-06 10:33 | Outpatient (CLI) | payer MEDICARE, SELFPAY ==
[2023-08-06 10:37] VITALS: BMI 27.6
--- NOTE | 2023-08-06 10:40 | PC.NURSE ---
1040-collected labs via peripheral stick with butterfly needle in left forearm;pt to wait on results if hgb >17 pt to have therapeutic phlebotomy to have 500ml drawn off.
[2023-08-06 10:56] LABS: Basophils # 0.1 K/mm3 (0-0.2); Basophils % 0.9 % (0.1-2.0); Eosinophils # 0.2 K/mm3 (0.0-0.4); Hematocrit 50.9 % (42.0-52.0); Hemoglobin 16.8 g/dL (14.1-18.0); Lymphocytes # 1.1 K/mm3 (0.7-4.5); Lymphocytes % 19.4 % (10-50); Mean Corpuscular HGB Conc 33.1 g/dL (31.8-35.4); Mean Corpuscular Hemoglobin 29.5 pg (27.0-31.2); Mean Platelet Volume 7.3 fl (7.4-10.4); Monocytes # 0.5 K/mm3 (0.1-1.0); Neutrophils # 3.9 K/mm3 (1.8-7.8); Neutrophils % 67.8 % (37.0-80.0); Platelet Count 186 K/mm3 (142-424); Red Blood Count 5.72 M/mm3 (4.60-6.20); Red Cell Distribution Width 15.3 % (11.5-17.5); White Blood Count 5.8 K/mm3 (4.8-10.8)
--- NOTE | 2023-08-06 11:18 | PC.NURSE ---
1118-pt d/c home hgb 16.8
== END 2023-08-06 11:18 | disposition home or self-care (01) ==
LOC: INF 10:34
PROVIDERS: Visit Provider Internal Medicine
DX: D45 Polycythemia vera (principal)
CPT/HCPCS: 36415; 85025

== ENCOUNTER 2023-09-03 10:34 | Outpatient (CLI) | payer MEDICARE, SELFPAY ==
[2023-09-03 10:44] VITALS: BMI 27.6
[2023-09-03 10:51] LABS: Basophils # 0.1 K/mm3 (0-0.2); Basophils % 0.9 % (0.1-2.0); Eosinophils # 0.2 K/mm3 (0.0-0.4); Eosinophils % 3.6 % (0.1-12.0); Hematocrit 48.4 % (42.0-52.0); Hemoglobin 16.3 g/dL (14.1-18.0); Lymphocytes % 18.4 % (10-50); Mean Corpuscular HGB Conc 33.6 g/dL (31.8-35.4); Mean Corpuscular Hemoglobin 29.8 pg (27.0-31.2); Mean Corpuscular Volume 88.7 fl (80-94); Mean Platelet Volume 7.7 fl (7.4-10.4); Monocytes # 0.5 K/mm3 (0.1-1.0); Monocytes % 8.7 % (1.7-9.3); Neutrophils # 3.8 K/mm3 (1.8-7.8); Neutrophils % 68.4 % (37.0-80.0); Platelet Count 199 K/mm3 (142-424); Red Blood Count 5.45 M/mm3 (4.60-6.20); Red Cell Distribution Width 14.9 % (11.5-17.5); White Blood Count 5.6 K/mm3 (4.8-10.8)
--- NOTE | 2023-09-03 11:04 | PC.NURSE ---
1047- cbc drawn via butterfly in right ac. needle removed and coban applied. Hgb less than 17 and does not meet criteria for phlebotomy at this time per MD order. pt scheduled for recheck in one month, 10/01/23.
== END 2023-09-03 11:04 | disposition home or self-care (01) ==
PROVIDERS: Visit Provider Internal Medicine
DX: D45 Polycythemia vera (principal)
CPT/HCPCS: 36415; 85025

== ENCOUNTER 2023-10-01 10:54 | Outpatient (CLI) | payer MEDICARE, SELFPAY ==
[2023-10-01 10:58] VITALS: BMI 27.6
--- NOTE | 2023-10-01 11:02 | PC.NURSE ---
1102-collected labs via venipuncture stick in left ac with butterfly needle;will wait on results for possible therapeutic phlebotomy if hgb>17 draw off 500ml.
[2023-10-01 11:20] LABS: Basophils # 0.1 K/mm3 (0-0.2); Basophils % 1.1 % (0.1-2.0); Eosinophils # 0.1 K/mm3 (0.0-0.4); Eosinophils % 2.7 % (0.1-12.0); Hematocrit 51.7 % (42.0-52.0); Hemoglobin 17.2 g/dL (14.1-18.0); Lymphocytes # 0.9 K/mm3 (0.7-4.5); Lymphocytes % 17.9 % (10-50); Mean Corpuscular HGB Conc 33.4 g/dL (31.8-35.4); Mean Corpuscular Hemoglobin 29.4 pg (27.0-31.2); Mean Corpuscular Volume 88.3 fl (80-94); Mean Platelet Volume 7.7 fl (7.4-10.4); Monocytes # 0.4 K/mm3 (0.1-1.0); Monocytes % 8.2 % (1.7-9.3); Neutrophils # 3.5 K/mm3 (1.8-7.8); Platelet Count 199 K/mm3 (142-424); Red Blood Count 5.85 M/mm3 (4.60-6.20); Red Cell Distribution Width 15.2 % (11.5-17.5); White Blood Count 5.1 K/mm3 (4.8-10.8)
[2023-10-01 11:40] VITALS: BP 126/82; PULSE 86; RESP 18; O2SAT 100
[2023-10-01 12:10] VITALS: BP 119/96; PULSE 84; RESP 18; O2SAT 100
== END 2023-10-01 12:10 | disposition home or self-care (01) ==
LOC: INF 10:55
PROVIDERS: Visit Provider Internal Medicine
DX: D45 Polycythemia vera (principal)
CPT/HCPCS: 36415; 85025; 99195

== ENCOUNTER 2023-10-22 11:26 | Outpatient (CLI) | payer MEDICARE, SELFPAY ==
[2023-10-22 11:28] VITALS: BMI 26.5
--- NOTE | 2023-10-22 11:32 | PC.NURSE ---
1130 CBC collected via venipuncture x1 stick to R AC with butterfly needle. Patient here for possible therapeutic phlebotomy based on Hct result. Patient tolerated well.
[2023-10-22 11:41] LABS: Basophils % 0.6 % (0.1-2.0); Eosinophils # 0.1 K/mm3 (0.0-0.4); Hematocrit 53.2 % (42.0-52.0); Hemoglobin 17.1 g/dL (14.1-18.0); Lymphocytes # 1.2 K/mm3 (0.7-4.5); Lymphocytes % 20.5 % (10-50); Mean Corpuscular HGB Conc 32.1 g/dL (31.8-35.4); Mean Corpuscular Hemoglobin 28.5 pg (27.0-31.2); Mean Corpuscular Volume 88.6 fl (80-94); Mean Platelet Volume 7.6 fl (7.4-10.4); Monocytes # 0.6 K/mm3 (0.1-1.0); Neutrophils # 3.9 K/mm3 (1.8-7.8); Neutrophils % 66.9 % (37.0-80.0); Platelet Count 209 K/mm3 (142-424); Red Cell Distribution Width 15.7 % (11.5-17.5); White Blood Count 5.8 K/mm3 (4.8-10.8)
[2023-10-22 11:56] VITALS: BP 135/76; PULSE 71; RESP 16; TEMP 36.7; O2SAT 97
[2023-10-22 12:23] VITALS: BP 112/66; PULSE 81; RESP 16; TEMP 36.7; O2SAT 98
== END 2023-10-22 12:35 | disposition home or self-care (01) ==
LOC: INF 11:27
PROVIDERS: Visit Provider Internal Medicine
DX: D45 Polycythemia vera (principal)
CPT/HCPCS: 36415; 85025; 99195

== ENCOUNTER 2023-11-25 11:21 | Outpatient (CLI) | payer MEDICARE, SELFPAY ==
[2023-11-25 11:27] VITALS: BMI 27.6
[2023-11-25 11:41] LABS: Basophils # 0.1 K/mm3 (0-0.2); Basophils % 0.9 % (0.1-2.0); Eosinophils # 0.2 K/mm3 (0.0-0.4); Eosinophils % 2.6 % (0.1-12.0); Hematocrit 52.2 % (42.0-52.0); Hemoglobin 17.2 g/dL (14.1-18.0); Lymphocytes # 1.2 K/mm3 (0.7-4.5); Lymphocytes % 20.9 % (10-50); Mean Platelet Volume 7.4 fl (7.4-10.4); Monocytes # 0.5 K/mm3 (0.1-1.0); Neutrophils # 3.8 K/mm3 (1.8-7.8); Neutrophils % 67.7 % (37.0-80.0); Platelet Count 206 K/mm3 (142-424); Red Blood Count 5.93 M/mm3 (4.60-6.20); Red Cell Distribution Width 15.2 % (11.5-17.5); White Blood Count 5.6 K/mm3 (4.8-10.8)
[2023-11-25 11:50] VITALS: BP 120/76; PULSE 71; RESP 18; O2SAT 96
[2023-11-25 12:12] VITALS: BP 125/77; PULSE 74; RESP 18; O2SAT 97
== END 2023-11-25 12:12 | disposition home or self-care (01) ==
LOC: INF 11:22
PROVIDERS: Visit Provider Internal Medicine
DX: D45 Polycythemia vera (principal)
CPT/HCPCS: 36415; 85025; 99195

== ENCOUNTER 2023-12-23 10:48 | Outpatient (CLI) | payer MEDICARE, SELFPAY ==
[2023-12-23 10:57] VITALS: BMI 27.6
--- NOTE | 2023-12-23 11:12 | PC.NURSE ---
12/23/23 1100 Pt presents today for lab check and possible phlebotomy. Venipuncture performed using butterfly access needle to pt's lt fa x 1 stick and blood drawn for labs as ordered. Needle withdrawn and site secured with 2x2 gauze and coban. Pt will await results to determine if further intervention is needed.
[2023-12-23 11:15] LABS: Basophils % 0.9 % (0.1-2.0); Eosinophils # 0.1 K/mm3 (0.0-0.4); Eosinophils % 2.3 % (0.1-12.0); Hematocrit 49.7 % (42.0-52.0); Hemoglobin 15.9 g/dL (14.1-18.0); Lymphocytes # 1.1 K/mm3 (0.7-4.5); Lymphocytes % 20.9 % (10-50); Mean Corpuscular HGB Conc 32.1 g/dL (31.8-35.4); Mean Corpuscular Hemoglobin 28.9 pg (27.0-31.2); Mean Corpuscular Volume 90.2 fl (80-94); Mean Platelet Volume 7.7 fl (7.4-10.4); Monocytes # 0.4 K/mm3 (0.1-1.0); Monocytes % 8.1 % (1.7-9.3); Neutrophils # 3.6 K/mm3 (1.8-7.8); Neutrophils % 67.7 % (37.0-80.0); Platelet Count 246 K/mm3 (142-424); Red Cell Distribution Width 14.9 % (11.5-17.5); White Blood Count 5.3 K/mm3 (4.8-10.8)
[2023-12-23 11:46] VITALS: BP 129/81; PULSE 68; RESP 18; TEMP 36.7; O2SAT 97
== END 2023-12-23 11:46 | disposition home or self-care (01) ==
LOC: INF 10:49
PROVIDERS: Visit Provider Internal Medicine
DX: D45 Polycythemia vera (principal)
CPT/HCPCS: 36415; 85025

== ENCOUNTER 2024-01-20 11:04 | Outpatient (CLI) | payer MEDICARE, SELFPAY ==
[2024-01-20 11:09] VITALS: BMI 27.6
[2024-01-20 11:37] LABS: Basophils # 0.1 K/mm3 (0-0.2); Eosinophils # 0.2 K/mm3 (0.0-0.4); Eosinophils % 4.3 % (0.1-12.0); Hemoglobin 15.9 g/dL (14.1-18.0); Lymphocytes % 17.8 % (10-50); Mean Corpuscular HGB Conc 31.8 g/dL (31.8-35.4); Mean Platelet Volume 7.2 fl (7.4-10.4); Monocytes # 0.6 K/mm3 (0.1-1.0); Neutrophils # 3.7 K/mm3 (1.8-7.8); Neutrophils % 66.8 % (37.0-80.0); Platelet Count 221 K/mm3 (142-424); Red Blood Count 5.69 M/mm3 (4.60-6.20); White Blood Count 5.6 K/mm3 (4.8-10.8)
== END 2024-01-20 12:10 | disposition home or self-care (01) ==
LOC: INF 11:05
PROVIDERS: Visit Provider Internal Medicine
DX: D45 Polycythemia vera (principal)
CPT/HCPCS: 36415; 85025

== ENCOUNTER 2024-02-24 10:49 | Outpatient (CLI) | payer MEDICARE, SELFPAY ==
[2024-02-24 10:55] VITALS: BMI 27.7
--- NOTE | 2024-02-24 11:00 | PC.NURSE ---
1100-collected labs via venipuncture stick in left ac;pt to wait on labs for therapeutic phlebotomy if hgb >17
[2024-02-24 11:13] LABS: Basophils # 0.1 K/mm3 (0-0.2); Basophils % 0.8 % (0.1-2.0); Eosinophils # 0.2 K/mm3 (0.0-0.4); Eosinophils % 1.9 % (0.1-12.0); Hematocrit 53.2 % (42.0-52.0); Hemoglobin 16.8 g/dL (14.1-18.0); Lymphocytes % 12.7 % (10-50); Mean Corpuscular HGB Conc 31.6 g/dL (31.8-35.4); Mean Corpuscular Hemoglobin 27.8 pg (27.0-31.2); Mean Corpuscular Volume 87.9 fl (80-94); Mean Platelet Volume 7.3 fl (7.4-10.4); Monocytes # 0.6 K/mm3 (0.1-1.0); Monocytes % 8.1 % (1.7-9.3); Neutrophils # 5.8 K/mm3 (1.8-7.8); Neutrophils % 76.5 % (37.0-80.0); Platelet Count 250 K/mm3 (142-424); Red Blood Count 6.06 M/mm3 (4.60-6.20); Red Cell Distribution Width 15.9 % (11.5-17.5); White Blood Count 7.6 K/mm3 (4.8-10.8)
--- NOTE | 2024-02-24 11:25 | PC.NURSE ---
1125-pt d/c home hgb 16.8
== END 2024-02-24 11:25 | disposition home or self-care (01) ==
LOC: INF 10:51
PROVIDERS: Visit Provider Internal Medicine
DX: D45 Polycythemia vera (principal)
CPT/HCPCS: 36415; 85025

== ENCOUNTER 2024-03-23 10:05 | Outpatient (CLI) | payer MEDICARE, SELFPAY ==
[2024-03-23 10:09] VITALS: BMI 27.7
[2024-03-23 10:27] LABS: Basophils # 0.1 K/mm3 (0-0.2); Basophils % 1.4 % (0.1-2.0); Eosinophils # 0.2 K/mm3 (0.0-0.4); Eosinophils % 2.6 % (0.1-12.0); Hematocrit 51.8 % (42.0-52.0); Hemoglobin 16.6 g/dL (14.1-18.0); Mean Corpuscular Hemoglobin 27.9 pg (27.0-31.2); Mean Corpuscular Volume 87.2 fl (80-94); Mean Platelet Volume 7.2 fl (7.4-10.4); Monocytes # 0.7 K/mm3 (0.1-1.0); Monocytes % 11.6 % (1.7-9.3); Neutrophils # 3.7 K/mm3 (1.8-7.8); Neutrophils % 66.4 % (37.0-80.0); Platelet Count 220 K/mm3 (142-424); Red Blood Count 5.94 M/mm3 (4.60-6.20); Red Cell Distribution Width 16.3 % (11.5-17.5); White Blood Count 5.6 K/mm3 (4.8-10.8)
--- NOTE | 2024-03-23 10:59 | PC.NURSE ---
1013-collected labs via venipuncture stick in left ac with butterfly needle pt to wait on results for possible therapeutic phlebotomy for hgb>17
== END 2024-03-23 10:35 | disposition home or self-care (01) ==
LOC: INF 10:06
PROVIDERS: Visit Provider Internal Medicine
DX: D45 Polycythemia vera (principal)
CPT/HCPCS: 36415; 85025

== ENCOUNTER 2024-05-18 10:07 | Outpatient (CLI) | payer MEDICARE, SELFPAY ==
[2024-05-18 10:30] VITALS: BMI 27.7
--- NOTE | 2024-05-18 10:32 | PC.NURSE ---
Pt presents today for lab draw to check cbc and possible phlebotomy. Venipuncture performed per Leslie Bernstein RN-nurse job coaching to pt's rt ac x 1 stick per butterfly needle. Blood drawn at this time, needle withdrawn and site secured with 2x2 gauze and coban. Specimen sent to lab for analysis. Will monitor for results to determine if pt will need phlebotomy.
--- NOTE | 2024-05-18 10:33 | PC.NURSE ---
venipuncture draw with a butterfly needle. cbc drawn and sent to lab. pt tolerated well. coban and 2x2s applied. will wait on results. pt verbalized understanding.
[2024-05-18 10:44] LABS: Basophils # 0.1 K/mm3 (0-0.2); Basophils % 1.1 % (0.1-2.0); Eosinophils # 0.2 K/mm3 (0.0-0.4); Eosinophils % 3.1 % (0.1-12.0); Hematocrit 52.3 % (42.0-52.0); Mean Corpuscular HGB Conc 32.5 g/dL (31.8-35.4); Mean Corpuscular Hemoglobin 28.8 pg (27.0-31.2); Mean Corpuscular Volume 88.6 fl (80-94); Mean Platelet Volume 7.2 fl (7.4-10.4); Monocytes # 0.5 K/mm3 (0.1-1.0); Monocytes % 8.5 % (1.7-9.3); Neutrophils # 3.8 K/mm3 (1.8-7.8); Neutrophils % 69.2 % (37.0-80.0); Platelet Count 233 K/mm3 (142-424); Red Cell Distribution Width 16.7 % (11.5-17.5); White Blood Count 5.6 K/mm3 (4.8-10.8)
== END 2024-05-18 11:14 | disposition home or self-care (01) ==
LOC: INF 10:08
PROVIDERS: Visit Provider Internal Medicine
DX: D45 Polycythemia vera (principal)
CPT/HCPCS: 36415; 85025

== ENCOUNTER 2024-07-13 10:03 | Outpatient (CLI) | payer MEDICARE, SELFPAY ==
[2024-07-13 10:09] VITALS: BMI 27.8
--- NOTE | 2024-07-13 10:22 | PC.NURSE ---
1015 CBC collected via venipuncture to L forearm x1 stick with butterfly needle. Patient here for possible therapeutic phlebotomy based on lab results. Patient tolerated well.
[2024-07-13 10:35] LABS: Basophils # 0.1 K/mm3 (0-0.2); Basophils % 1.1 % (0.1-2.0); Eosinophils # 0.2 K/mm3 (0.0-0.4); Eosinophils % 3.2 % (0.1-12.0); Hematocrit 54.8 % (42.0-52.0); Hemoglobin 17.2 g/dL (14.1-18.0); Lymphocytes % 17.6 % (10-50); Mean Corpuscular HGB Conc 31.4 g/dL (31.8-35.4); Mean Corpuscular Hemoglobin 28.9 pg (27.0-31.2); Mean Corpuscular Volume 92.2 fl (80-94); Mean Platelet Volume 6.4 fl (7.4-10.4); Monocytes # 0.5 K/mm3 (0.1-1.0); Monocytes % 8.3 % (1.7-9.3); Neutrophils # 3.9 K/mm3 (1.8-7.8); Neutrophils % 69.7 % (37.0-80.0); Platelet Count 201 K/mm3 (142-424); Red Blood Count 5.94 M/mm3 (4.60-6.20); Red Cell Distribution Width 15.6 % (11.5-17.5); White Blood Count 5.6 K/mm3 (4.8-10.8)
== END 2024-07-13 11:35 | disposition home or self-care (01) ==
LOC: INF 10:04
PROVIDERS: Physician Assistant; Visit Provider Internal Medicine Medical Oncology
DX: I25.10 Atherosclerotic heart disease of native coronary artery without angina pectoris (principal)
CPT/HCPCS: 36415; 85025

== ENCOUNTER 2024-09-13 10:23 | Outpatient (CLI) | payer MEDICARE, SELFPAY ==
[2024-09-13 10:29] VITALS: BMI 27.7
[2024-09-13 10:40] LABS: Basophils # 0.1 K/mm3 (0-0.2); Basophils % 1.1 % (0.1-2.0); Eosinophils # 0.2 K/mm3 (0.0-0.4); Eosinophils % 3.1 % (0.1-12.0); Hematocrit 53.5 % (42.0-52.0); Hemoglobin 17.9 g/dL (14.1-18.0); Lymphocytes # 0.9 K/mm3 (0.7-4.5); Lymphocytes % 17.9 % (10-50); Mean Corpuscular HGB Conc 33.5 g/dL (31.8-35.4); Mean Corpuscular Hemoglobin 30.2 pg (27.0-31.2); Mean Corpuscular Volume 90.2 fl (80-94); Mean Platelet Volume 6.9 fl (7.4-10.4); Monocytes # 0.4 K/mm3 (0.1-1.0); Monocytes % 8.1 % (1.7-9.3); Neutrophils # 3.5 K/mm3 (1.8-7.8); Neutrophils % 69.9 % (37.0-80.0); Platelet Count 195 K/mm3 (142-424); Red Blood Count 5.93 M/mm3 (4.60-6.20); Red Cell Distribution Width 15.2 % (11.5-17.5); White Blood Count 5.1 K/mm3 (4.8-10.8)
[2024-09-13 11:15] VITALS: BP 130/95; PULSE 80; RESP 108; O2SAT 96
--- NOTE | 2024-09-13 11:20 | PC.NURSE ---
Abdi Joaquin starting therapeutic phlebotomy at this time.
[2024-09-13 12:15] VITALS: BP 149/100; PULSE 73; RESP 18; O2SAT 96
--- NOTE | 2024-09-13 12:15 | PC.NURSE ---
End of therapeutic phlebotomy at this time. 260/500 drawn. IV clotted and pt refused another IV stick.
== END 2024-09-13 12:20 | disposition home or self-care (01) ==
LOC: INF 10:24
PROVIDERS: Visit Provider Physician Assistant
DX: D45 Polycythemia vera (principal)
CPT/HCPCS: 36415; 85025; 99195

== ENCOUNTER 2024-11-10 12:46 | Outpatient (CLI) | payer MEDICARE, SELFPAY ==
[2024-11-10 12:50] VITALS: BMI 27.8
[2024-11-10 13:02] LABS: Basophils # 0.1 K/mm3 (0-0.2); Basophils % 1.1 % (0.1-2.0); Eosinophils # 0.1 K/mm3 (0.0-0.4); Eosinophils % 1.5 % (0.1-12.0); Hematocrit 56.2 % (42.0-52.0); Lymphocytes # 0.8 K/mm3 (0.7-4.5); Lymphocytes % 15.3 % (10-50); Mean Corpuscular HGB Conc 32.6 g/dL (31.8-35.4); Mean Corpuscular Hemoglobin 29.5 pg (27.0-31.2); Mean Corpuscular Volume 90.5 fl (80-94); Mean Platelet Volume 8.6 fl (7.4-10.4); Monocytes # 0.6 K/mm3 (0.1-1.0); Monocytes % 10.1 % (1.7-9.3); Neutrophils # 3.9 K/mm3 (1.8-7.8); Neutrophils % 71.6 % (37.0-80.0); Platelet Count 172 K/mm3 (142-424); Red Blood Count 6.21 M/mm3 (4.60-6.20); Red Cell Distribution Width 14.3 % (11.5-17.5); White Blood Count 5.4 K/mm3 (4.8-10.8)
--- NOTE | 2024-11-10 13:10 | PC.NURSE ---
11/10/24 1300 Venipuncture performed using a butterfly access needle to pt's lt ac x 1 stick, blood drawn. Needle withdrawn and site secured with 2x2 gauze and coban. Will await results to determine if phlebotomy is needed.
[2024-11-10 13:27] LABS: Hemoglobin 18.4 g/dL (14.1-18.0)
[2024-11-10 13:50] VITALS: BP 141/91; PULSE 78; RESP 20; TEMP 36.4; O2SAT 98
[2024-11-10 14:28] VITALS: BP 139/98; PULSE 76; RESP 20; O2SAT 98
== END 2024-11-10 14:28 | disposition home or self-care (01) ==
LOC: INF 12:48
PROVIDERS: Physician Assistant; Visit Provider Internal Medicine
DX: I48.91 Unspecified atrial fibrillation (principal); I10 Essential (primary) hypertension; I50.22 Chronic systolic (congestive) heart failure
CPT/HCPCS: 36415; 85025; 99195

== ENCOUNTER 2025-01-04 12:51 | Outpatient (CLI) | payer MEDICARE, SELFPAY ==
[2025-01-04 12:52] VITALS: BMI 27.7
[2025-01-04 13:14] LABS: Basophils # 0.1 K/mm3 (0-0.2); Basophils % 0.7 % (0.1-2.0); Eosinophils # 0.2 K/mm3 (0.0-0.4); Eosinophils % 2.4 % (0.1-12.0); Hematocrit 51.4 % (42.0-52.0); Lymphocytes # 0.8 K/mm3 (0.7-4.5); Lymphocytes % 11.7 % (10-50); Mean Corpuscular HGB Conc 33.1 g/dL (31.8-35.4); Mean Corpuscular Volume 87.6 fl (80-94); Mean Platelet Volume 8.6 fl (7.4-10.4); Monocytes # 0.5 K/mm3 (0.1-1.0); Monocytes % 7.4 % (1.7-9.3); Neutrophils # 5.3 K/mm3 (1.8-7.8); Neutrophils % 77.7 % (37.0-80.0); Platelet Count 206 K/mm3 (142-424); Red Blood Count 5.87 M/mm3 (4.60-6.20); Red Cell Distribution Width 13.5 % (11.5-17.5); White Blood Count 6.8 K/mm3 (4.8-10.8)
--- NOTE | 2025-01-04 14:59 | PC.NURSE ---
1305 Patient here for possible therapeutic phlebotomy. CBC obtained via venipuncture to L AC x1 stick with butterfly needle. Patient tolerated well.
== END 2025-01-04 13:35 | disposition home or self-care (01) ==
LOC: INF 12:51
PROVIDERS: Visit Provider Internal Medicine
DX: I42.9 Cardiomyopathy, unspecified (principal)
CPT/HCPCS: 36415; 85025

== ENCOUNTER 2025-03-02 12:38 | Outpatient (CLI) | payer MEDICARE, SELFPAY ==
[2025-03-02 12:42] VITALS: BMI 27.7
--- NOTE | 2025-03-02 12:50 | PC.NURSE ---
03/02/25 1245 Pt presents today for labs and possible phlebotomy. Venipuncture performed using a butterfly access needle to pt's lt fa x 1 stick and blood drawn. Needle withdrawn and site secured with 2x2 gauze and coban. Specimen sent to lab for analysis. Pt to wait for results to determine poc.
[2025-03-02 12:55] LABS: Basophils # 0.1 K/mm3 (0-0.2); Eosinophils # 0.1 Kmm3 (0.0-0.4); Eosinophils % 2.7 % (0.1-12.0); Hematocrit 51.7 % (42.0-52.0); Hemoglobin 17.4 g/dL (14.1-18.0); Immature Granulocytes # 0.01 10^3uL; Immature Granulocytes % 0.2 %; Lymphocytes # 0.9 K/mm3 (0.7-4.5); Lymphocytes % 17.2 % (10-50); Mean Corpuscular HGB Conc 33.7 g/dL (31.8-35.4); Mean Corpuscular Hemoglobin 29.2 pg (27.0-31.2); Mean Corpuscular Volume 86.9 fl (80-94); Mean Platelet Volume 8.9 fl (7.4-10.4); Monocytes # 0.5 K/mm3 (0.1-1.0); Monocytes % 10.5 % (1.7-9.3); Neutrophils # 3.5 K/mm3 (1.8-7.8); Neutrophils % 68.4 % (37.0-80.0); Nucleated Red Blood Cells # 0 10^3/uL; Nucleated Red Blood Cells % 0 %; Platelet Count 189 K/mm3 (142-424); Red Blood Count 5.95 M/mm3 (4.60-6.20); Red Cell Distribution Width 14.9 % (11.5-17.5); Red Cell Distribution Width-SD 47.3 fL; White Blood Count 5.1 K/mm3 (4.8-10.8)
[2025-03-02 13:05] VITALS: BP 110/71; PULSE 70; RESP 18; TEMP 36.4; O2SAT 99
[2025-03-02 13:28] VITALS: BP 126/78; PULSE 88; RESP 18; O2SAT 99
== END 2025-03-02 13:30 | disposition home or self-care (01) ==
LOC: INF 12:40
PROVIDERS: Visit Provider Nurse Practitioner
DX: I42.9 Cardiomyopathy, unspecified (principal); I25.10 Atherosclerotic heart disease of native coronary artery without angina pectoris
CPT/HCPCS: 36415; 85025; 99195

== ENCOUNTER 2025-04-27 12:13 | Outpatient (CLI) | payer MEDICARE, SELFPAY ==
[2025-04-27 12:17] VITALS: BMI 27.8
[2025-04-27 12:29] LABS: Hematocrit 51.2 % (42.0-52.0); Hemoglobin 17.7 g/dL (14.1-18.0); Immature Granulocytes % 0.2 %; Mean Corpuscular HGB Conc 34.6 g/dL (31.8-35.4); Mean Corpuscular Hemoglobin 30.4 pg (27.0-31.2); Mean Corpuscular Volume 88.0 fl (80-94); Nucleated Red Blood Cells % 0 %; Platelet Count 248 K/mm3 (142-424); Red Blood Count 5.82 M/mm3 (4.60-6.20); Red Cell Distribution Width-SD 47.5 fL; White Blood Count 6.0 K/mm3 (4.8-10.8)
--- NOTE | 2025-04-27 13:14 | PC.NURSE ---
phlebotomy held today due to hypotension. automatic BP 82/56 after multiple attempts on both arms. manual BP 80/52. pt reported some dizziness recently and takes several BP medications. pt taken to ER for further evaluation.
== END 2025-04-27 12:30 | disposition home or self-care (01) ==
LOC: INF 12:14
PROVIDERS: Visit Provider Physician Assistant
DX: D45 Polycythemia vera (principal)
CPT/HCPCS: 36415; 85025

== ENCOUNTER 2025-04-27 12:48 | Emergency (ER) | payer MEDICARE, SELFPAY ==
[2025-04-27] VITALS (13 sets, daily range): BP systolic 86–117; BP diastolic 54–86; PULSE 57–96; RESP 12–19; TEMP 36.7; O2SAT 95–99; BMI 26.4
--- NOTE | 2025-04-27 13:27 | ED_ITS ---
<Statement entered by Gamal Muse MD - 04/28/25 12:01> I was consulted by the MONO, and we discussed the complexity of the problems being addressed. I approved the treatment and management plan for this patient's care in the emergency department, thus performing a substantive portion of the medical decision making. Gamal Muse MD Discharge Plan Disposition Patient Disposition: Home, Self-Care Condition: Good Prescriptions Prescriptions: No Action Eliquis 5 mg tablet 5 mg PO BID Qty: 180 3RF sacubitril-valsartan 49-51 mg tablet 1 tab PO BID Qty: 180 3RF bisoprolol fumarate 10 mg tablet See Rx Instructions .ROUTE .COMPLEX Qty: 90 3RF Dose Instruction: Take 1 tablet by mouth once daily Rx Instructions: Take 1 tablet by mouth once daily Referrals Follow up/Referrals: Provider,Referral, [Primary Care Provider, Medical] - See instructions Activity Restrictions/Add. Instructions Additional Instructions/Restrictions: Please return to the emergency department with any worsening signs or symptoms, please follow-up with your family doctor and assistant professor of history regarding your kidney function, I recommend good intake with fluids and solids, continue to take all your medication as prescribed. Clinical Impressions Clinical Impression: Acute kidney injury Instructions Patient Instructions: Acute Kidney Injury Print Language Print Language: Luxembourgish Discharge ED Provider: Gamal Muse General Adult HPI <ADRIANO Ortiz - Last Filed: 04/27/25 16:07> General Chief complaint: Recheck/Abnormal Lab/Rx Stated complaint: low BP, poss Dehidration Time Seen by Provider: 04/27/25 13:09 Mode of Arrival: Ambulatory Source of Information: Patient Description of Symptoms (Recalled from ER Triage Doc. by RN): Pt reports he was sent down from the infusion dept with c/o low BP. Pt reports some dizzness but states he has been active in the heat, has not had anything to eat or drink today and he did take all his BP meds this morning. History of Present Illness HPI narrative: 79-year-old male presents the emergency department at the request of outpatient infusion/phlebotomy center with a chief complaint of generalized weakness low blood pressure, he also endorses some lightheadedness/dizziness for the last week, that is intermittent, he states he has been working outside . Denies any fever chills chest pain shortness of breath, no nausea no vomiting, does admit his constipation for the last 2 or 3 days, which somewhat chronic for him, denies any urinary type symptomatology, patient states I believe him dehydrated . It appears the patient upon review of nursing triage noted outpatient facility was having routine laboratory studies drawn today, patient [place] any history of tobacco use, no alcohol use or drug use, patient has past medical history consistent with CHF/cardiomyopathy, hypertension, patient is on anticoagulation with Eliquis, he is unsure of the reason, but it appears patient has atrial fibrillation based on chart review,. Initial triage vitals are grossly unremarkable. Onset (ago): day(s) Related Data Previous Rx's ?Medication ?Instructions ?Recorded apixaban 5 mg tablet (Eliquis) 5 mg PO BID Blood thinn er #180 tabs 12/03/24 sacubitril 49 mg-valsartan 51 mg 1 tab PO BID blood pr essure #180 12/03/24 tablet tabs bisoprolol fumarate 10 mg tablet See Rx Instructions . Route 12/10/24 .COMPLEX #90 tabs Allergies Allergy/AdvReac Type Severity Reaction Status Date / Time No Known Allergies Allergy Verified 04/27/25 13:09 [facility] <ADRIANO Ortiz - Last Filed: 04/27/25 16:07> [facility] Disclaimer: The information contained in this section may have been updated after the patient was seen, as this information can be updated by other users. Medical History (Updated 04/27/25 @ 16:06 by ADRIANO Ortiz) Elevated hemoglobin Hematochezia Abnormal EKG Cardiomyopathy Chronic systolic heart failure CAD (coronary artery disease) Family History Other No significant family history Social History Smoking Status: Never smoker second hand exposure: No alcohol intake: never substance use type: denies use current occupational status: retired Travel in the last 8 weeks?: Inside the [place] household members: none housing: house current occupational exposures/hazards: No Have you lived/traveled outside [place] in past 30 days?: No Contact w/someone who lives/traveled outside [place] past 30 days?: No Exposure to someone with infectious disease in past 14 days?: No Do you have a fever (greater than 100.4 F or 38 C)?: No Have you tested positive for COVID-19?: No Exposed to someone with COVID-19 in past 14 days?: No Do you have a sore throat?: No Do you have a cough?: No Do you have any weakness?: No Do you have any diarrhea?: No Are you experiencing any unusual bleeding?: No Do you have any muscle aches/pain?: No Do you have any abdominal pain?: No Are you experiencing loss of taste or smell?: No Other Medical History Have you received the Flu Vaccine for this season: No Have you received the Pneumonia Vaccine: No <ADRIANO Ortiz - Last Filed: 04/27/25 16:07> ROS Obtained: Yes All systems reviewed & no additional complaints except as documented Physical Exam <ADRIANO Ortiz - Last Filed: 04/27/25 16:07> General General appearance: alert and in no apparent distress Head Head exam: atraumatic and normocephalic Eye Eye exam: Present PERRL, EOMI and other (Enophthalmos noted bilaterally) ENT ENT exam: Present mucous membranes moist Neck Neck exam: Present normal inspection Chest Chest inspection: Present normal inspection and symmetric chest wall rise Respiratory Respiratory exam: Present normal lung sounds bilaterally; Absent respiratory distress Cardiovascular Cardiovascular exam: Present regular rate and normal rhythm Abdominal Exam Abdominal exam: Present soft; Absent tenderness, guarding or rebound Extremities Exam Extremities exam: Present normal inspection Neurological Exam Neurological exam: Present alert and oriented X3 Psychiatric Psychiatric exam: Present normal affect Skin Skin exam: Present warm and dry Medical Decision Making <ADRIANO Ortiz - Last Filed: 04/27/25 16:07> Medical Records Medical records reviewed: Yes I reviewed the patient's medical records. Screening: Per USPSTF and CDC recommendations, given the prevalence of disease in our region, it is our hospital?s policy to screen for HIV and viral Hepatitis for all patients aged 18 and over and those with ongoing risk factors. Moe Inquiry Pt receiving controlled substance: No Moe was queried for this patient: No Vital Signs: 04/27/25 12:58 04/27/25 13:00 04/27/25 13:00 Temperature 98.0 F Temperature Source Oral Pulse Rate 67 67 Pulse Rate [Orthostatic Lying] Pulse Rate [Orthostatic Sitting] Pulse Rate [Orthostatic Standing] Pulse Rate [Right Brachial] 74 Respiratory Rate 19 18 16 Blood Pressure 113/83 101/73 L Blood Pressure [Orthostatic Lying] Blood Pressure [Orthostatic Sitting] Blood Pressure [Orthostatic Standing] Blood Pressure [Right Arm] 117/79 Blood Pressure Mean 90 80 Blood Pressure Mean [Right Arm] 91 Blood Pressure Source [Right Arm] Automatic Cuff Blood Pressure Position [Right Arm] Sitting 02 Sat by Pulse Oximetry 99 96 99 Oxygen Delivery Method Room Air 04/27/25 13:30 04/27/25 13:34 04/27/25 14:00 Temperature Temperature Source Pulse Rate 62 60 Pulse Rate [Orthostatic Lying] 68 Pulse Rate [Orthostatic Sitting] 76 Pulse Rate [Orthostatic Standing] 96 H Pulse Rate [Right Brachial] Respiratory Rate 13 14 Blood Pressure 104/76 L 96/72 L Blood Pressure [Orthostatic Lying] 98/70 L Blood Pressure [Orthostatic Sitting] 105/81 L Blood Pressure [Orthostatic Standing] 86/54 L Blood Pressure [Right Arm] Blood Pressure Mean 84 77 Blood Pressure Mean [Right Arm] Blood Pressure Source [Right Arm] Blood Pressure Position [Right Arm] 02 Sat by Pulse Oximetry 96 96 Oxygen Delivery Method 04/27/25 14:01 04/27/25 14:03 04/27/25 14:04 Temperature Temperature Source Pulse Rate 63 71 76 Pulse Rate [Orthostatic Lying] Pulse Rate [Orthostatic Sitting] Pulse Rate [Orthostatic Standing] Pulse Rate [Right Brachial] Respiratory Rate 12 12 14 Blood Pressure 98/70 L 105/81 L 86/66 L Blood Pressure [Orthostatic Lying] Blood Pressure [Orthostatic Sitting] Blood Pressure [Orthostatic Standing] Blood Pressure [Right Arm] Blood Pressure Mean 76 86 72 Blood Pressure Mean [Right Arm] Blood Pressure Source [Right Arm] Blood Pressure Position [Right Arm] 02 Sat by Pulse Oximetry 97 95 95 Oxygen Delivery Method 04/27/25 14:15 04/27/25 14:30 04/27/25 15:00 Temperature Temperature Source Pulse Rate 67 67 57 L Pulse Rate [Orthostatic Lying] Pulse Rate [Orthostatic Sitting] Pulse Rate [Orthostatic Standing] Pulse Rate [Right Brachial] Respiratory Rate 16 16 15 Blood Pressure 106/86 L 100/77 L 96/75 L Blood Pressure [Orthostatic Lying] Blood Pressure [Orthostatic Sitting] Blood Pressure [Orthostatic Standing] Blood Pressure [Right Arm] Blood Pressure Mean 92 84 77 Blood Pressure Mean [Right Arm] Blood Pressure Source [Right Arm] Blood Pressure Position [Right Arm] 02 Sat by Pulse Oximetry 96 96 95 Oxygen Delivery Method Lab Data Lab results reviewed: Yes I reviewed the patient's lab results. Lab Results 04/27/25 13:35: WBC 5.7, RBC 5.73, Hgb 16.9, Hct 49.6, MCV 86.6, MCH 29.5, MCHC 34.1, RDW 14.6, Plt Count 246, MPV 8.9, Neut % (Auto) 67.6, Lymph % (Auto) 17.3, [place] % (Auto) 10.6 H, Eos % (Auto) 3.2, Baso % (Auto) 0.9, Neut # (Auto) 3.9, Lymph # (Auto) 1.0, [place] # (Auto) 0.6, Eos # (Auto) 0.2, Baso # (Auto) 0.1, S odium 134 L, Potassium 3.1 L, Chloride 96 L, Carbon Dioxide 30, Anion Gap 11.1, BUN 36 H, Creatinine 1.70 H, Estimated Creat Clear 47, Estimated GFR 39 L, Est GFR ( Amer) 48 L, Glucose 107 H, Calcium 8.9, Total Bilirubin 1.7 H, AST 28, ALT 13, Alkaline Phosphatase 74, Troponin I < 0.01, NT-Pro-B Natriuret Pep 1050 H, Total Protein 6.4, Albumin 3.6, Globulin 2.8, Albumin/Globulin Ratio 1.3 04/27/25 13:35 04/27/25 13:35 Orders (Tests/Meds): ED MEDICATIONS Discontinued Medications Generic Name Dose Route Start Last Admin Trade Name Freq PRN Reason Stop Dose Admin Sodium Chloride 1,000 mls @ 999 mls/hr 04/27/25 14:31 04/27/25 15:00 Sod Chlor 0.9% 1000ml Bag IV 04/27/25 15:31 999 mls/hr .Q1H1M ONE Administration Potassium Chloride 40 meq 04/27/25 14:32 04/27/25 15:00 Potassium Chloride 20meq Tab PO 04/27/25 14:33 40 meq ONCE ONE Administration ORDERS Category Date Time Status Complete Blood Count Auto Diff Stat Lab 04/27/25 13:35 Completed Comprehensive Metabolic Panel Stat Lab 04/27/25 13:35 Completed NT Pro Brain Natriuretic Pep. Stat Lab 04/27/25 13:35 Completed Troponin I Q3H Lab 04/27/25 16:30 Ordered Troponin I Q3H Lab 04/27/25 19:30 Ordered Troponin I Stat Lab 04/27/25 13:35 Completed Urinalysis and Microscopic Stat Lab 04/27/25 13:23 Ordered Medical Decision Narrative: 79-year-old male presents to the emergency department with generalized weakness, 1 episode of hypotension noted at outside/phlebotomy center differential diagnose include but not limited to, cardiac arrhythmia, electrolyte disturbance, acute CHF exacerbation, hypovolemia, acute kidney injury, static hypotension, medication side effect among others. I discussed this patient's case with the attending physician Dr. Muse Will obtain basic laboratory studies, proBNP, troponin, UA, EKG and orthostatics. CBC unremarkable CMP is notable for mild hyponatremia at 134, hypokalemia 3.1, BUN/creatinine elevated 36/1.7 Troponin within normal limits, proBNP is mildly elevated at 1050. Replace potassium with 40 mill equivalents of p.o. potassium negative orthostatic vital signs. Reexamination the patient approxi-4 PM, patient blood pressure has improved, now 113 systolic, patient has no acute complaints, I discussed all results with the patient at bedside, patient had negative orthostatic vital signs, does have acute kidney injury, in comparison from previous creatinine and BUN level in 2021, it is mildly elevated, most likely prerenal, due to the patient's decreased volume status, with some kidney and enophthalmos, could be due to signs of dehydration as the patient is a working outside in the heat for the last several days, recommend follow-up with PCP, as well as assistant professor of history in the upcoming days as directed. Patient was given strict ED return precautions. Patient voiced understanding and agreed with current treatment plan/discharge plan. <Gamal Muse MD - Last Filed: 04/27/25 14:04> Vital Signs: 04/27/25 12:58 04/27/25 13:00 04/27/25 13:00 Temperature 98.0 F Temperature Source Oral Pulse Rate 67 67 Pulse Rate [Orthostatic Lying] Pulse Rate [Orthostatic Sitting] Pulse Rate [Orthostatic Standing] Pulse Rate [Right Brachial] 74 Respiratory Rate 19 18 16 Blood Pressure 113/83 101/73 L Blood Pressure [Orthostatic Lying] Blood Pressure [Orthostatic Sitting] Blood Pressure [Orthostatic Standing] Blood Pressure [Right Arm] 117/79 Blood Pressure Mean 90 80 Blood Pressure Mean [Right Arm] 91 Blood Pressure Source [Right Arm] Automatic Cuff Blood Pressure Position [Right Arm] Sitting 02 Sat by Pulse Oximetry 99 96 99 Oxygen Delivery Method Room Air 04/27/25 13:30 04/27/25 13:34 04/27/25 14:00 Temperature Temperature Source Pulse Rate 62 60 Pulse Rate [Orthostatic Lying] 68 Pulse Rate [Orthostatic Sitting] 76 Pulse Rate [Orthostatic Standing] 96 H Pulse Rate [Right Brachial] Respiratory Rate 13 14 Blood Pressure 104/76 L 96/72 L Blood Pressure [Orthostatic Lying] 98/70 L Blood Pressure [Orthostatic Sitting] 105/81 L Blood Pressure [Orthostatic Standing] 86/54 L Blood Pressure [Right Arm] Blood Pressure Mean 84 77 Blood Pressure Mean [Right Arm] Blood Pressure Source [Right Arm] Blood Pressure Position [Right Arm] 02 Sat by Pulse Oximetry 96 96 Oxygen Delivery Method 04/27/25 14:01 04/27/25 14:03 04/27/25 14:04 Temperature Temperature Source Pulse Rate 63 71 76 Pulse Rate [Orthostatic Lying] Pulse Rate [Orthostatic Sitting] Pulse Rate [Orthostatic Standing] Pulse Rate [Right Brachial] Respiratory Rate 12 12 14 Blood Pressure 98/70 L 105/81 L 86/66 L Blood Pressure [Orthostatic Lying] Blood Pressure [Orthostatic Sitting] Blood Pressure [Orthostatic Standing] Blood Pressure [Right Arm] Blood Pressure Mean 76 86 72 Blood Pressure Mean [Right Arm] Blood Pressure Source [Right Arm] Blood Pressure Position [Right Arm] 02 Sat by Pulse Oximetry 97 95 95 Oxygen Delivery Method 04/27/25 14:15 04/27/25 14:30 04/27/25 15:00 Temperature Temperature Source Pulse Rate 67 67 57 L Pulse Rate [Orthostatic Lying] Pulse Rate [Orthostatic Sitting] Pulse Rate [Orthostatic Standing] Pulse Rate [Right Brachial] Respiratory Rate 16 16 15 Blood Pressure 106/86 L 100/77 L 96/75 L Blood Pressure [Orthostatic Lying] Blood Pressure [Orthostatic Sitting] Blood Pressure [Orthostatic Standing] Blood Pressure [Right Arm] Blood Pressure Mean 92 84 77 Blood Pressure Mean [Right Arm] Blood Pressure Source [Right Arm] Blood Pressure Position [Right Arm] 02 Sat by Pulse Oximetry 96 96 95 Oxygen Delivery Method Lab Data Lab Results 04/27/25 13:35: WBC 5.7, RBC 5.73, Hgb 16.9, Hct 49.6, MCV 86.6, MCH 29.5, MCHC 34.1, RDW 14.6, Plt Count 246, MPV 8.9, Neut % (Auto) 67.6, Lymph % (Auto) 17.3, [place] % (Auto) 10.6 H, Eos % (Auto) 3.2, Baso % (Auto) 0.9, Neut # (Auto) 3.9, Lymph # (Auto) 1.0, [place] # (Auto) 0.6, Eos # (Auto) 0.2, Baso # (Auto) 0.1, S odium 134 L, Potassium 3.1 L, Chloride 96 L, Carbon Dioxide 30, Anion Gap 11.1, BUN 36 H, Creatinine 1.70 H, Estimated Creat Clear 47, Estimated GFR 39 L, Est GFR ( Amer) 48 L, Glucose 107 H, Calcium 8.9, Total Bilirubin 1.7 H, AST 28, ALT 13, Alkaline Phosphatase 74, Troponin I < 0.01, NT-Pro-B Natriuret Pep 1050 H, Total Protein 6.4, Albumin 3.6, Globulin 2.8, Albumin/Globulin Ratio 1.3 Orders (Tests/Meds): ED MEDICATIONS Discontinued Medications Generic Name Dose Route Start Last Admin Trade Name Freq PRN Reason Stop Dose Admin Sodium Chloride 1,000 mls @ 999 mls/hr 04/27/25 14:31 04/27/25 15:00 Sod Chlor 0.9% 1000ml Bag IV 04/27/25 15:31 999 mls/hr .Q1H1M ONE Administration Potassium Chloride 40 meq 04/27/25 14:32 04/27/25 15:00 Potassium Chloride 20meq Tab PO 04/27/25 14:33 40 meq ONCE ONE Administration ORDERS Category Date Time Status Complete Blood Count Auto Diff Stat Lab 04/27/25 13:35 Completed Comprehensive Metabolic Panel Stat Lab 04/27/25 13:35 Completed NT Pro Brain Natriuretic Pep. Stat Lab 04/27/25 13:35 Completed Troponin I Q3H Lab 04/27/25 16:30 Ordered Troponin I Q3H Lab 04/27/25 19:30 Ordered Troponin I Stat Lab 04/27/25 13:35 Completed Urinalysis and Microscopic Stat Lab 04/27/25 13:23 Ordered ECG Data Tracing #1: Independently interpreted by me rate 61, rhythm is regular, rate controlled atrial fibrillation, isolated PVC, no ST elevation in anatomical contiguous leads, left bundle branch block, QTc 414 Critical Care <ADRIANO Ortiz - Last Filed: 04/27/25 16:07> Critical Care Time Critical Care Time: No
--- NOTE | 2025-04-27 13:36 | ECG_ITS ---
APPROVED REPORT Exam: Resting ECG HR:61 bpm ECG Measurements Heart Rate 61 AXES QRSd 108 QRS 31 QT 411 T 257 QTc 414 Conclusion ATRIAL FIBRILLATION WITH ABERRANT CONDUCTION OR VENTRICULAR PREMATURE COMPLEXES MODERATE T-WAVE ABNORMALITY, CONSIDER INFERIOR ISCHEMIA [-0.1+ mV T-WAVE IN II/aVF] ABNORMAL ECG Electronically signed by : KELLY NAVAS, 05/08/2025 15:56:13
[2025-04-27 13:41] LABS: Hematocrit 49.6 % (42.0-52.0); Hemoglobin 16.9 g/dL (14.1-18.0); Immature Granulocytes % 0.4 %; Mean Corpuscular HGB Conc 34.1 g/dL (31.8-35.4); Mean Corpuscular Hemoglobin 29.5 pg (27.0-31.2); Mean Corpuscular Volume 86.6 fl (80-94); Nucleated Red Blood Cells % 0 %; Platelet Count 246 K/mm3 (142-424); Red Blood Count 5.73 M/mm3 (4.60-6.20); Red Cell Distribution Width-SD 47.0 fL; White Blood Count 5.7 K/mm3 (4.8-10.8)
[2025-04-27 13:48] LABS: Chloride 96 mmol/L (98-107)
[2025-04-27 13:49] LABS: Albumin Level 3.6 g/dl (3.5-5.0); Potassium 3.1 mmoL/L (3.5-5.1); Sodium 134 mmol/L (136-145)
[2025-04-27 13:51] LABS: Blood Urea Nitrogen 36 mg/dl (9-20); Creatinine Clearance Estimated 47 mL/min (50-200); Creatinine,Serum 1.70 mg/dl (0.66-1.25); Estimated Glomerular Filt Rate 39 ml/min (>60); GFR (African American) 48 ML/MIN (>60)
[2025-04-27 13:52] LABS: Alanine Aminotransferase 13 U/L (12-78); Albumin/Globulin Ratio 1.3 (1.1-1.8); Alkaline Phosphatase 74 U/L (38-126); Anion Gap 11.1 mEq/L (5-15); Aspartate Amino Transferase 28 U/L (17-59); Bilirubin,Total 1.7 mg/dl (0.2-1.3); Calcium 8.9 mg/dl (8.4-10.2); Carbon Dioxide 30 mmol/L (22.0-30.0); Globulin 2.8 g/dL (1.3-3.2); Glucose 107 mg/dl (74-100); Total Protein,Serum 6.4 g/dl (6.3-8.2)
[2025-04-27 14:01] LABS: NT Pro Brain Natriuretic Pep. 1050 pg/mL (0-450)
--- NOTE | 2025-04-27 14:09 | PC.NURSE ---
perforemed Orthostatic VS
[2025-04-27 14:19] LABS: Troponin I < 0.01 ng/ml (0.00-0.034)
[2025-04-27] MEDS: POTASSIUM CHLORIDE 20MEQ TAB 40 MEQ PO (15:00)
[2025-04-27] MEDS: 0.9 % SODIUM CHLORIDE 1000ML 1,000 ML 999 ML IV (15:00)
== END 2025-04-27 16:26 | disposition home or self-care (01) ==
PROVIDERS: Physician Assistant; Emergency Provider Emergency Medicine
DX: N17.9 Acute kidney failure, unspecified (principal); E86.0 Dehydration; E87.6 Hypokalemia; E87.1 Hypo-osmolality and hyponatremia; I95.9 Hypotension, unspecified; I48.0 Paroxysmal atrial fibrillation; I44.7 Left bundle-branch block, unspecified
CPT/HCPCS: 80053; 83880; 84484; 85025; 93005; 96360; 99284; J7030

== ENCOUNTER 2025-06-22 11:43 | Outpatient (CLI) | payer MEDICARE, SELFPAY ==
[2025-06-22 12:02] LABS: Hematocrit 45.5 % (42.0-52.0); Hemoglobin 15.6 g/dL (14.1-18.0); Immature Granulocytes % 0.3 %; Mean Corpuscular HGB Conc 34.3 g/dL (31.8-35.4); Mean Corpuscular Hemoglobin 30.4 pg (27.0-31.2); Mean Corpuscular Volume 88.5 fl (80-94); Nucleated Red Blood Cells % 0 %; Platelet Count 173 K/mm3 (142-424); Red Blood Count 5.14 M/mm3 (4.60-6.20); Red Cell Distribution Width-SD 47.2 fL; White Blood Count 6.0 K/mm3 (4.8-10.8)
--- NOTE | 2025-06-22 12:09 | PC.NURSE ---
1140 Pt presents for lab check and possible phlebotomy. Venipuncture performed using butterfly access needle x 1 stick to pt's rt fa and blood drawn for labs as ordered. Needle withdrawn and site secured with 2x2 gauze and coban. Lab specimen sent to lab for analysis.
[2025-06-22 12:16] VITALS: BP 116/82; PULSE 94; RESP 20; TEMP 36.6; O2SAT 98
== END 2025-06-22 12:16 | disposition home or self-care (01) ==
LOC: INF 11:44
PROVIDERS: PCP Internal Medicine; Visit Provider Physician Assistant
DX: D45 Polycythemia vera (principal)
CPT/HCPCS: 36415; 85025

== ENCOUNTER 2025-08-17 12:34 | Outpatient (CLI) | payer MEDICARE, SELFPAY ==
[2025-08-17 12:43] LABS: Hematocrit 49.6 % (42.0-52.0); Hemoglobin 16.5 g/dL (14.1-18.0); Immature Granulocytes % 0.2 %; Mean Corpuscular HGB Conc 33.3 g/dL (31.8-35.4); Mean Corpuscular Hemoglobin 30.2 pg (27.0-31.2); Mean Corpuscular Volume 90.7 fl (80-94); Nucleated Red Blood Cells % 0 %; Platelet Count 182 K/mm3 (142-424); Red Blood Count 5.47 M/mm3 (4.60-6.20); Red Cell Distribution Width-SD 47.1 fL; White Blood Count 5.9 K/mm3 (4.8-10.8)
== END 2025-08-17 23:59 | disposition home or self-care (01) ==
LOC: INF 12:34
PROVIDERS: Visit Provider Physician Assistant
DX: D45 Polycythemia vera (principal)
CPT/HCPCS: 36415; 85025